=== PATIENT | male | born 1945 | race Caucasian/White ===

== ENCOUNTER 2018-05-11 09:22 | Outpatient (CLI) | payer MEDICARE, BC, SELFPAY ==
[2018-05-11 11:01] LABS: Anion Gap 9.5 mmol/L (3-11); BUN 14 mg/dL (7-18); CO2 29.5 mmol/L (21.0-32.0); CREATININE 0.85 mg/dL (0.70-1.30); Calcium 8.9 mg/dL (8.5-10.1); Chloride 100 mmol/L (98-107); Cholesterol 126 mg/dL (50-200); Glucose 93 mg/dL (70-100); HDL Cholesterol 60 mg/dL (40-60); LDL CHOLESTEROL 60 mg/dL (<100); Potassium 3.7 mmol/L (3.5-5.1); Sodium 139 mmol/L (136-145); Triglyceride 49 mg/dL (30-150)
[2018-05-11 11:16] LABS: Hemoglobin A1C 5.5 % (4.5-6.2)
== END 2018-05-11 09:42 ==
LOC: NCHCO 09:25 → LBO 16:49
PROVIDERS: PCP Nurse Practitioner Family; Visit Provider Nurse Practitioner Family
DX: E78.5 Hyperlipidemia, unspecified (principal); I10 Essential (primary) hypertension; R73.01 Impaired fasting glucose
CPT/HCPCS: 36415; 80048; 80061; 83721; 83036

== ENCOUNTER → 2019-07-10 09:42 | Outpatient (BNVA) | payer MEDICARE, BC, SELFPAY | PROVIDERS: PCP Nurse Practitioner Family; Referring Provider Nurse Practitioner Family; Visit Provider Orthopaedic Surgery | DX: M65.342 Trigger finger, left ring finger (principal) | CPT/HCPCS: 99201; 99203 ==

== ENCOUNTER 2019-07-15 10:21 | Day surgery (SDC) | payer MEDICARE, BC, SELFPAY ==
[2019-07-15 11:26] VITALS: BP 153/77; PULSE 78; RESP 16; TEMP 36.1; O2SAT 96
[2019-07-15] MEDS: Lidocaine 2% Multi-Dose 50 ML VIAL (12:20)
--- NOTE | 2019-07-15 12:21 | W.PM.DSUDISC ---
Discharge Plan Disposition Patient Disposition: HOME Condition: Good Discharge Details Reason For Visit: Trigger finger release Attending Provider: Nadeem Salamanca Primary Care Provider: Anika Robles Home Meds and New Rx's Prescriptions: Continued Shingrix (PF) 50 mcg/0.5 mL suspension for reconstitution 50 mcg IM .COMPLEX Qty: 1 RF: 1 Glucosamine-Chondroitin Complx 1 EACH capsule 2 cap PO DAILY RF: 0 aspirin 81 MG tablet,delayed release (DR/EC) 81 mg PO DAILY RF: 0 acetaminophen 500 MG tablet 500 mg PO q4-6prn RF: 0 kvng extract 250 MG capsule 250 mg PO DAILY RF: 0 acetaminophen 325 MG tablet 650 mg PO Q4H PRN RF: 0 scopolamine base 1 mg over 3 days patch 3 day 1 patch TD Q72H PRN (Reason: nausea and vomiting, motion sickness) Qty: 10 RF: 0 hydrochlorothiazide 25 mg tablet 25 mg PO DAILY Qty: 90 RF: 3 losartan 50 mg tablet 50 mg PO DAILY Qty: 90 RF: 3 simvastatin 40 mg tablet 40 mg PO DAILY Qty: 90 RF: 3 famotidine 20 MG tablet 20 tab PO DAILY RF: 0 Discharge Instructions Additional Instructions: Bend and straighten fingers L hand 10 times/hour when awake to prevent swelling. Keep dressings dry and in place for 48 hours. Remove dressings after 48 hours. May then shower or bathe and get incision wet. Leave incision uncovered when it is dry and sealed. Take tylenol or ibuprofen for pain. Follow up with in 2 weeks. Referrals: Nadeem Salamanca MD [ [facility] STAFF PHYSICIAN] - (f/u in 2 weeks.) Activity:: Activity as Tolerated Remove Dressings/Wound Care:: 48 hours Shower/Bathe:: 48 hours Diet:: As Tolerated Discharge Orders Discharge Orders: Discharge Order (Routine); Ordered 07/15/19 Ordered By: Nadeem Salamanca DS: Diagnosis Discharge Diagnosis (1) Trigger ring finger of left hand: Status: Acute
[2019-07-15 12:46] VITALS: BP 138/69; PULSE 67; RESP 14; O2SAT 92
--- NOTE | 2019-07-17 06:28 | ROE_ITS ---
REPORT OF OPERATIVE PROCEDURE DATE OF PROCEDURE July 15, 2019 PREOPERATIVE DIAGNOSIS Trigger left ring finger. POSTOPERATIVE DIAGNOSIS Trigger left ring finger. PROCEDURE Tendon sheath incision for trigger finger release left ring finger. ANESTHESIA Local infiltration 1% Xylocaine solution and 0.5% Marcaine solution. SURGEON Nadeem Salamanca M.D. INDICATIONS This is a 73-year-old white male with painful locking of his left ring finger. This has been going on for a month. He is still quite active and working. He cannot hold on to tools with his left hand bec ause of the locking of the left ring finger. Trigger finger release was recommended to alleviate his pain and restore normal function to the left ring finger. The risks and complications of the procedur e were explained to the patient in detail preoperatively. DESCRIPTION OF PROCEDURE The patient was taken the Operating Room on July 15, 2019. He was placed supine on the Operating Table. The left hand was prepped and draped free in the usual sterile fashion. I infiltrated over t he proximal gabi of the flexure sheath of the left ring finger with 1% Xylocaine solution. I then made a transverse incision about 5 mm distal to the distal palmar flexion crease centered over flexor sheath of the left ring finger. The incision was about 2 cm in length. The incision was carried ramiro n to the subcu. Blunt tip Littler scissors were then used to mobilize the soft tissues away from the flexor sheath. Retractors were inserted and flexor sheath was clearly visualized. I incised the flex or sheath in the midline, and then extended the incision proximally and distally the entire length of the proximal gabi. I then asked the patient to actively flex and extend his left ringer finger. He was now able to flex and extend his finger fully without locking or catching. The wound was irrigated with saline solution. The wound margins were infiltrated with 0.5% Marcaine solution. The skin edges were approximated with three interrupted #4-0 Nylon sutures. Sterile dressi ngs were applied of Xeroform gauze, sterile gauze, 4x4s, and wrapped with a 2-inch cling bandage. The patient tolerated the procedure well and was discharged to the Day Surgery Unit in good condition. The patient was discharged home from the Day Surgery Unit with instructions to keep the dressings dry and intact for 48 hours. After 48 hours, he may remove the dressings, shower, bathe and get his inci dorothy wet. He is encouraged to flex and extend the fingers of his left hand 10 times an hour while john ke to prevent stiffness and swelling. He will take Tylenol or ibuprofen as needed for pain. He may le ave the incision uncovered after 48 hours if it is dry and sealed. He should followup in Dr. Salamanca's office in two weeks for suture removal.
== END 2019-07-15 12:43 | disposition home or self-care (01) ==
PROVIDERS: PCP Nurse Practitioner Family; Visit Provider Orthopaedic Surgery
PROC: (CPT 26055; principal; 2019-07-15 11:15)
DX: M65.342 Trigger finger, left ring finger (principal)
CPT/HCPCS: 26055

== ENCOUNTER → 2019-07-30 10:01 | Outpatient (BNVA) | payer MEDICARE, BC, SELFPAY | PROVIDERS: PCP Nurse Practitioner Family; Referring Provider Nurse Practitioner Family; Visit Provider Orthopaedic Surgery | DX: Z47.89 Encounter for other orthopedic aftercare (principal); M65.342 Trigger finger, left ring finger ==

== ENCOUNTER 2019-10-31 10:36 | Outpatient (REF) | payer MEDICARE, BC, SELFPAY ==
[2019-10-31 19:14] LABS: Anion Gap 6.7 mmol/L (3-11); BUN 21 mg/dL (7-18); CO2 28.3 mmol/L (21.0-32.0); CREATININE 0.68 mg/dL (0.70-1.30); Calcium 8.9 mg/dL (8.5-10.1); Calculated LDL 69 mg/dL (<100); Chloride 105 mmol/L (98-107); Cholesterol 132 mg/dL (<200); Glucose 102 mg/dL (74-106); HDL Cholesterol 56 mg/dL (40-60); Potassium 3.8 mmol/L (3.5-5.1); Sodium 140 mmol/L (136-145); Triglyceride 39 mg/dL (<150)
== END 2019-10-31 10:56 ==
LOC: LBN 10:36
PROVIDERS: PCP Nurse Practitioner Family; Visit Provider Nurse Practitioner Family
DX: I10 Essential (primary) hypertension (principal); E78.5 Hyperlipidemia, unspecified
CPT/HCPCS: 80048; 80061

== ENCOUNTER 2021-01-31 12:45 | Emergency (ER) | payer MEDICARE, BC, SELFPAY ==
[2021-01-31 12:56] VITALS: BP 147/63; PULSE 64; TEMP 36.6; O2SAT 96
--- NOTE | 2021-01-31 13:10 | ED.GENADUL_ITS ---
Discharge Plan Disposition Patient Disposition: HOME Condition: Improving Discharge Details Clinical Impression: Cellulitis of arm, right Primary Care Provider: Anika Robles ED Provider: Nadeem Naik Home Meds and New Rx's Prescriptions: New sulfamethoxazole-trimethoprim [Bactrim DS] 800-160 mg tablet 1 tab PO BID 7 Days Qty: 14 RF: 0 Continued atorvastatin 40 mg tablet 40 mg PO DAILY RF: 0 hydrochlorothiazide 25 mg tablet 25 mg PO DAILY Qty: 90 RF: 3 Glucosamine-Chondroitin Complx 1 EACH capsule 2 cap PO DAILY RF: 0 aspirin 81 MG tablet,delayed release (DR/EC) 81 mg PO DAILY RF: 0 acetaminophen 500 MG tablet 500 mg PO q4-6prn RF: 0 kvng extract 250 MG capsule 250 mg PO DAILY RF: 0 acetaminophen 325 MG tablet 650 mg PO Q4H PRN RF: 0 losartan 100 mg tablet 100 mg PO DAILY RF: 0 famotidine 20 MG tablet 20 tab PO DAILY RF: 0 hydrochlorothiazide 25 mg tablet 50 mg PO DAILY RF: 0 Discharge Instructions Instructions: Cellulitis (ED) Additional Instructions: Continue to apply warm, moist heat to area to speed healing. Our care managers will arrange a follow-up for you in clinic this week for recheck. Continue your lower dose of losartan. Take antibiotics as prescribed. Medical Decision Making Pleasant and delightful 75-year-old male who believes he was stung by a hy menoptera on the right posterior upper humerus on January 14. He developed surrounding cellulitis. He was seen initially at urgent care and trialed on Keflex with no improvement and then subsequent had significant improvement following 1 week of Bactrim which she finished 3 days ago. Now with recurrent cellulitis at the same area. No systemic signs or symptoms of infection. He is otherwise well-appearing. He does have hypertension for which he takes losartan and hydrochlorothiazide. His losartan dose was decreased to 100 while taking Bactrim last week. Given the patient's significant improvement with Bactrim, I do feel 1 more week will be efficacious for him. We will ask for care management to arrange a follow-up with him and he will continue the lower dose of losartan for renal pr otection. Stable and appropriate for outpatient management. HPI General Mode of arrival: ambulatory . Date/Time Provider Initiated Documentation: 01/31/21 12:46 . Limitations to Documentation: no limitations . Information obtained by: patient . History of Present Illness 75 year old M presents to the emergency department with the chief complaint of Right arm cellulitis, recurrent, described as mild and similar to prior episodes, Quality is described as dull and constant, and is localized to the right and upper extremity. Patient reports no radiation. Patient started experiencing this day(s) and it has been constant. No relieving factors improve symptom(s), No exacerbating factors reported . Patient notes denies fever/chills, headaches and weakness. Patient did receive the following treatments prior to arrival, other (Finished Bactrim on Monday, 3 days prior) Related Data Home Medications Medication Instructions Recorded Confirmed Glucosamine-Chondroitin Complx 2 cap PO DAILY 08/13/12 01/31/21 acetaminophen 500 mg PO q4-6prn 08/13/12 01/31/21 aspirin 81 mg PO DAILY tab-cap 08/13/12 01/31/21 kvng extract 250 mg PO DAILY 04/26/13 01/31/21 famotidine 20 tab PO DAILY 10/18/14 01/31/21 acetaminophen 650 mg PO Q4H PRN tab-cap 11/20/15 01/31/21 losartan 100 mg tablet 100 mg PO DAILY 06/02/20 01/31/21 hydrochlorothiazide 25 mg tablet 25 mg PO DAILY #90 tab-cap 10/19/20 01/31/21 atorvastatin 40 mg tablet 40 mg PO DAILY 11/18/20 01/31/21 hydrochlorothiazide 50 mg PO DAILY 01/31/21 01/31/21 sulfamethoxazole-trimethoprim 1 tab PO BID 7 Days #14 tab 01/31/21 [Bactrim DS] Previous Rx's Medication Instructions Recorded hydrochlorothiazide 25 mg tablet 25 mg PO DAILY #90 tab-cap 10/19/20 sulfamethoxazole-trimethoprim 1 tab PO BID 7 Days #14 tab 01/31/21 [Bactrim DS] Allergies Allergy/AdvReac Type Severity Reaction Status Date / Time No Known Allergies Allergy Verified 01/31/21 13:03 General Stated Complaint: Cellulitis GREG: 4 Review of Systems Narrative: No fever, chills, weakness. 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 Essential hypertension (10/23/12) GERD (gastroesophageal reflux disease) Hydrocele of testis (01/30/13) left Hyperlipidemia (02/10/12) Baseline LDL 110; high intensity statin therapy (increased from moderate by Cardiology 05/2020) IFG (impaired fasting glucose) Neck pain (12/28/12) Osteoarth NOS-l/leg (08/10/12) Rotator cuff arthropathy of right shoulder Trigger ring finger of left hand Ventricular septal defect (02/10/12) [facility] Cardiology Surgical History Repair of inguinal hernia (05/06/15) Right; Dr Ma Replacement of total knee joint (05/05/12) R 2011 L 2007 Status post carotid endarterectomy Left; Tanvir Gunnar Reynoso [facility] Status post total bilateral knee replacement (08/10/12) Family History Mother No problems noted. Father No problems noted. Brother No problems noted. Brother No problems noted. Brother Essential hypertension Brother No problems noted. Sister No problems noted. Sister No problems noted. Sister No problems noted. Social History Smoking/Tobacco Use Status: Former Tobacco Use Smoking risk assessment performed?: Yes Alcohol Intake: former Drug use: Never Substance use type: does not use Caregiver/Support person: No Household members: spouse Number of Children: 4 Pets and animals: No Current gender identity: male What type of physical activity do you participate in: regular exercise and ot her Details: Stays active Frequency: daily Seatbelt use: always Drive intox or ride w/intox mobile lounge driver: No Water heater temp set <120 deg: Yes Working smoke detector in home: Yes Fire extinguisher in home: Yes Carbon monox detector in home: Yes Firearms in home: No Do you feel safe at home: Yes Do you feel safe in your relationship?: Yes Exam Narrative Exam Narrative: GEN: awake, alert, oriented 3. Pleasant, well groomed, interactive. HEAD: Normocephalic, atraumatic CHEST/RESP: Nontender, clear to auscultation bilateral, no wheeze/rhonchi/rales CARDIOVASCULAR: RRR, holosystolic murmur 3 out of 6. 2+ Rad pulse bilateral EXT: Full ROM, right humerus posterior proximal erythema measuring approximately 10 x 3 cm with some skin induration. No fluctuance or pointing abscess. Neuro: Grossly normal neurologic exam, conversant, interactive. Psych: Speech fluent, thoughts congruent, affect normal Course Vital Signs Vital signs: Vital Signs Temperature 36.6 C 01/31/21 12:56 Pulse 64 01/31/21 12:56 Blood Pressure 147/63 H 01/31/21 12:56 Pulse Oximetry 96 01/31/21 12:56 Temperature 36.6 C 01/31/21 12:56 Temperature Source Oral 01/31/21 12:56 Pulse 64 01/31/21 12:56 Respiratory Effort Non-Labored 01/31/21 13:01 Blood Pressure 147/63 H 01/31/21 12:56 Blood Pressure Position Sitting 01/31/21 12:56 Pulse Oximetry 96 01/31/21 12:56 Oxygen Delivery Method Room Air 01/31/21 12:56 Oxygen Flow Rate 0 01/31/21 12:56 Pain Level 0 01/31/21 12:56
--- NOTE | 2021-01-31 13:12 | NUR.NOTE ---
referral to [facility] for follow up this week with michael frost
[2021-01-31] MEDS: Sulfameth/Trimeth DS TAB 1 TAB PO (13:20)
== END 2021-01-31 13:19 | disposition home or self-care (01) ==
PROVIDERS: Emergency Provider Emergency Medicine; PCP Nurse Practitioner Family
DX: L03.113 Cellulitis of right upper limb (principal)
CPT/HCPCS: 99283

== ENCOUNTER 2021-02-05 11:41 | Inpatient (IN) | payer MEDICARE, BC, SELFPAY ==
[2021-02-05 11:50] VITALS: BP 149/61; PULSE 69; RESP 18; TEMP 36.5; O2SAT 94
--- NOTE | 2021-02-05 12:15 | DI.US_ITS ---
Exam(s) US SOFT TISSUE EXTREMITY EXAM: US SOFT TISSUE EXTREMITY CLINICAL HISTORY: right arm pain, redness TECHNIQUE: Ultrasound performed using standard protocol. COMPARISON: US CAROTID ULTRASOUND from 10/29/2013 FINDINGS: Soft tissue ultrasound of the right axilla was performed. Note is made of mild soft tissue edema in the posterior upper arm. There is no evidence of abscess or mass. There is mildly enlarged lymph no de measuring about 21 x 15 x 11 millimeters with a clearly defined hilum. IMPRESSION: Mildly enlarged lymph node of the axilla. No other specific findings. DATA REPOSITORY:
[2021-02-05 12:31] LABS: Abs Immature Grans 0.03 10^3/uL (0.0-0.06); Absolute Basophil Count 0.03 10^3/uL (0.0-0.2); Absolute Lymphocyte Count 1.62 10^3/uL (1.2-3.4); Absolute Monocyte Count 0.44 10^3/uL (0.1-0.8); Absolute Neutrophil Count 3.78 10^3/uL (1.2-6.7); Basophils % 0.5; Eosinophils % 3.3; HCT 43.1 % (40.0-50.0); HGB 14.8 g/dL (13.5-17.5); Immature Grans % 0.5; Lymphocytes % 26.6; MCH 31.9 pg (27.0-33.0); MCHC 34.3 % (32.0-36.0); MCV 92.9 fL (80-95); MPV 8.6 fL (8.0-11.0); Monocytes % 7.2; Neutrophils % 61.9; Nucleated RBC 0 %; Platelet Count 218 10^3/uL (130-400); RBC 4.64 10^6/uL (4.36-5.78); RDW-SD 41.1 fL
[2021-02-05 13:01] LABS: ALT 37 U/L (16-63); AST 26 U/L (15-37); Alkaline Phosphatase 78 U/L (46-116); Anion Gap 10.4 mmol/L (3-11); BUN 22 mg/dL (7-18); Bilirubin, Total 0.6 mg/dL (0.2-1.0); C-Reactive Protein 0.12 mg/dL (0.0-0.3); CO2 26.6 mmol/L (21.0-32.0); CREATININE 1.2 mg/dL (0.70-1.30); Calcium 8.9 mg/dL (8.5-10.1); Chloride 102 mmol/L (98-107); Estimated GFR 58.71 (mL/min/1.73m2); Glucose 129 mg/dL (74-106); Potassium 4.2 mmol/L (3.5-5.1); Sodium 139 mmol/L (136-145); Total Protein 7.3 g/dL (6.4-8.2)
--- NOTE | 2021-02-05 13:12 | DI.RAD_ITS ---
Exam(s) XR SHOULDER RT COMPLETE 2+V EXAM: XR SHOULDER RT COMPLETE 2+V CLINICAL HISTORY: pain TECHNIQUE: COMPARISON: No exams were available for comparison FINDINGS: Five views were obtained. There is moderate narrowing of the cartilaginous joint space of the glenoh umeral joint. Multiple soft tissue calcifications are seen associated with rotator cuff adjacent to the humeral head presumably representing supraspinatus and infraspinatus associated calcifications. There is been an apparent resection of the distal clavicle. There are very prominent marginal osteop hytes of the glenoid and humeral head. There is no evidence of acute fracture or dislocation. IMPRESSION: Severe degenerative changes as described above. No evidence of acute fracture or dislocation. RADIATION DOSE DELIVERED: Total DLP
--- NOTE | 2021-02-05 13:13 | ED.GENADUL_ITS ---
Discharge Plan Discharge Details Chief Complaint: Cellulitis Admit Date/Time: 02/05/21 14:03 Admit Provider: Brenna Jacobsen Attending Provider: Brenna Jacobsen Primary Care Provider: Anika Robles ED Provider: Twila Kingsley Discharge Data Discharge Date/Time-TO BE ENTERED AT DEPARTURE: 02/05/21 15:23 Medical Decision Making Lactate of 2, no leukocytosis, OLY, creatinine 1.6 Patient initially quite hypotensive, 70/30, very fluid responsive, sepsis bolus of fluid administered Alert and oriented, first expected cellulitis although I suspect that the hypotension was partly prerenal and dehydration, as a creatinine was ordered after 1.5 L of normal saline No evidence of pulmonary edema/CHF with fluid bolus IV vancomycin and Zosyn initiated prior to chemistries returning Procalcitonin actually negative which is interesting Patient will need admission to the hospital for observation given hypotension and cellulitis with lymphangitis, concern for septic shock although I suspect the hypotension was multifactorial Patient is agreeable to admission, ED Covid negative Questionable left lower lobe infiltrate although oxygenation 100% on room air, lower suspicion for this although has been treated empirically Discussed with admitting hospitalist, Dr. Graham who will admit patient at this time VBG within normal limits Chest x-ray interpretation reviewed and films were available Medical Records Medical records reviewed: Yes I reviewed the patient's medical records. Lab Data Lab results reviewed: Yes I reviewed the patient's lab results. ECG Data Prior ECG tracings: available for review HPI General Mode of arrival: ambulatory . Date/Time Provider Initiated Documentation: 02/05/21 11:48 . Limitations to Documentation: no limitations . Information obtained by: patient . HPI Narrative: This 75-year-old gentleman presents with cellulitis to her right arm. He believes he was found by a hornet on 14 January and awoke the next morning with erythema on the pustule to the affected arm on the right. He states that he has-Keflex initially and subseq uently changed to Bactrim with good relief after week. He was evaluated on the of the symptoms were recurring after completion of the antibiotic and he was placed on an additional week course. He states that with this episode he has had no improvement in fact is worsening. He denies any fever or chills. He denies any chest pain or shortness of breath. Is been taking his antibiotic as prescribed. He denies any additional complaints time. Related Data Home Medications Medication Instructions Recorded Confirmed Glucosamine-Chondroitin Complx 2 cap PO DAILY 08/13/12 02/05/21 acetaminophen 500 mg PO q4-6prn 08/13/12 02/05/21 aspirin 81 mg PO DAILY tab-cap 08/13/12 02/05/21 kvng extract 250 mg PO DAILY 04/26/13 02/05/21 famotidine 20 tab PO DAILY 10/18/14 02/05/21 acetaminophen 650 mg PO Q4H PRN tab-cap 11/20/15 01/31/21 losartan 100 mg tablet 100 mg PO DAILY 06/02/20 02/05/21 hydrochlorothiazide 25 mg tablet 25 mg PO DAILY #90 tab-cap 10/19/20 01/31/21 atorvastatin 40 mg tablet 40 mg PO DAILY 11/18/20 02/05/21 hydrochlorothiazide 50 mg PO DAILY 01/31/21 02/05/21 sulfamethoxazole-trimethoprim 1 tab PO BID 7 Days #14 tab 01/31/21 02/05/21 [Bactrim DS] Previous Rx's Medication Instructions Recorded hydrochlorothiazide 25 mg tablet 25 mg PO DAILY #90 tab-cap 10/19/20 sulfamethoxazole-trimethoprim 1 tab PO BID 7 Days #14 tab 01/31/21 [Bactrim DS] Allergies Allergy/AdvReac Type Severity Reaction Status Date / Time No Known Allergies Allergy Verified 02/05/21 09:51 General Stated Complaint: Cellulitis GREG: 3 Review of Systems All systems reviewed & are unremarkable except as noted in HPI and below PFSH Medical History Ascending aortic aneurysm [facility] Cardiology BPH without urinary obstruction Carotid artery stenosis (08/10/12) S/p L CEA 11/18/15 [facility] 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 Essential hypertension (10/23/12) GERD (gastroesophageal reflux disease) Hydrocele of testis (01/30/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 Hyperlipidemia (02/10/12) Baseline LDL 110; high intensity statin therapy (increased from moderate by Cardiology 05/2020) IFG (impaired fasting glucose) Neck pain (12/28/12) Osteoarth NOS-l/leg (08/10/12) Rotator cuff arthropathy of right shoulder Trigger ring finger of left hand Ventricular septal defect (02/10/12) [facility] Cardiology Surgical History Repair of inguinal hernia (05/06/15) Right; Dr Ma Replacement of total knee joint (05/05/12) R 2012 L 2007 Status post carotid endarterectomy Left; Tanvir Gunnar Reynoso [facility] Status post total bilateral knee replacement (08/10/12) Family History Mother No problems noted. Father No problems noted. Brother No problems noted. Brother No problems noted. Brother Essential hypertension Brother No problems noted. Sister No problems noted. Sister No problems noted. Sister No problems noted. Social History Smoking/Tobacco Use Status: Former Tobacco Use Smoking risk assessment performed?: Yes Alcohol Intake: former Drug use: Never Substance use type: does not use Caregiver/Support person: No Household members: spouse Number of Children: 4 Pets and animals: No Current gender identity: male What type of physical activity do you participate in: regular exercise and other Details: Stays active Frequency: daily Seatbelt use: always Drive intox or ride w/intox canal driver: No Water heater temp set <120 deg: Yes Working smoke detector in home: Yes Fire extinguisher in home: Yes Carbon monox detector in home: Yes Firearms in home: No Do you feel safe at home: Yes Do you feel safe in your relationship?: Yes Exam Const General: ill appearing HENMT Other: Dry mucous membranes Eyes Sclera: sclerae normal Neck Other: No meningismus Resp Effort & Inspection: normal respiratory effort Auscultation: clear to auscultation bilaterally Cardio Rate: regular rate Other: No murmur GI Other: Nontender abdominal exam Other: No testicular tenderness, no penile tenderness, no rashes or lesions Skin Other: Right lower extremity cellulitis, healing burn noted on posterior right ankle, neurovascularly intact, cellulitis circumferentially to right calf and lower leg, no crepitus, no pain out of proportion to exam, lymphangitis extending to groin Neuro General: patient alert and patient oriented x3 Extrem Other: See note under skin Course Vital Signs Vital signs: Vital Signs Temperature 36.5 C 02/05/21 11:50 Pulse 69 02/05/21 11:50 Respiratory Rate 18 02/05/21 11:50 Blood Pressure 149/61 H 02/05/21 11:50 Pulse Oximetry 94 02/05/21 11:50 Temperature 36.5 C 02/05/21 11:50 Temperature Source Skin 02/05/21 11:50 Pulse 69 02/05/21 11:50 Respiratory Rate 18 02/05/21 11:50 Respiratory Effort 02/05/21 11:53 Blood Pressure 149/61 H 02/05/21 11:50 Blood Pressure Position Sitting 02/05/21 11:50 Pulse Oximetry 94 02/05/21 11:50 Oxygen Delivery Method Room Air 02/05/21 11:50 Oxygen Flow Rate 0 02/05/21 11:50 Pain Level 0 02/05/21 11:50 Lab/Test Results Lab/Test Results: 02/05/21 12:45 Blood Blood Culture - Pending 02/05/21 12:20 Blood Blood Culture - Pending Laboratory Tests Range/Units 02/05/21 02/05/21 12:20 12:20 WBC (4.4-10.8) 10^3/uL 6.10 RBC (4.36-5.78) 10^6/uL 4.64 Hgb (13.5-17.5) g/dL 14.8 Hct (40.0-50.0) % 43.1 MCV (80-95) fL 92.9 MCH (27.0-33.0) pg 31.9 MCHC (32.0-36.0) % 34.3 RDW (11.8-14.1) % 12.0 Plt Count (130-400) 10^3/uL 218 MPV (8.0-11.0) fL 8.6 Immature Gran % 0.5 Neutrophils % 61.9 Lymphocytes % 26.6 Monocytes % 7.2 Eosinophils % 3.3 Basophils % 0.5 Nucleated RBC % % 0 Absolute Neutrophils (1.2-6.7) 10^3/uL 3.78 Absolute Lymphocytes (1.2-3.4) 10^3/uL 1.62 Absolute Monocytes (0.1-0.8) 10^3/uL 0.44 Absolute Eosinophils (0.0-0.7) 10^3/uL 0.20 Absolute Basophils (0.0-0.2) 10^3/uL 0.03 Sodium (136-145) mmol/L 139 Potassium (3.5-5.1) mmol/L 4.2 Chloride (98-107) mmol/L 102 Carbon Dioxide (21.0-32.0) mmol/L 26.6 Anion Gap (3-11) mmol/L 10.4 BUN (7-18) mg/dL 22 H Creatinine (0.70-1.30) mg/dL 1.2 Estimated GFR/1.73 m2 (mL/min/1.73m2) 58.71 Glucose (74-106) mg/dL 129 H Calcium (8.5-10.1) mg/dL 8.9 Total Bilirubin (0.2-1.0) mg/dL 0.6 AST (15-37) U/L 26 ALT (16-63) U/L 37 Alkaline Phosphatase (46-116) U/L 78 C-Reactive Protein (0.0-0.3) mg/dL 0.12 Total Protein (6.4-8.2) g/dL 7.3 Albumin (3.4-5.0) g/dL 4.0 Critical Care Time Critical Care Time Critical Care Time: Yes Total Critical Care Time: 45 Attestation: IV antibiotics, severe sepsis, septic shock fluid bolus, telemetry monitoring, IV antibiotics, admission to the hospital, diagnostic lab and diagn ostic imaging assessment and
[2021-02-05 13:21] VITALS: BP 135/63; PULSE 69; RESP 14; TEMP 36.3; O2SAT 94
[2021-02-05 14:46] LABS: Source Nasal/Nares
[2021-02-05] MEDS: VANCOMYCIN/WATER (PEG) 2 GM/400 ML BAG IVPB (14:47)
[2021-02-05 15:40] LABS: COVID-19 PCR Negative (Negative)
[2021-02-05 15:44] VITALS: BP 129/66; PULSE 59; RESP 14; TEMP 36.5; O2SAT 95
[2021-02-05] MEDS: Enoxaparin 40 MG/0.4 ML SYR SC (16:48)
--- NOTE | 2021-02-05 16:48 | W.PM.HP.N ---
Date of service: 02/05/21 Time of Service: 16:48 Assessment and Plan Assessment and plan (1) Cellulitis of arm, right: Status: Acute Assessment and plan: Appears to be very much responding to IV vancomycin. Will continue this. Await blood culture results (2) Insect bite: Status: Acute Assessment and plan: It is unclear which insect this was and, given prevalence of tick-borne illness in the region, I do think tick studies are worth checking (3) Essential hypertension: Status: Chronic Assessment and plan: Continue home therapy (4) Hyperlipidemia: Status: Chronic Assessment and plan: continue home therapy Qualifiers: Hyperlipidemia type: unspecified Qualified Code(s): E78.5 - Hyperlipidemia, unspecified (5) DVT prophylaxis: Status: Acute Assessment and plan: sc lovenox (6) Discharge planning issues: Status: Acute Assessment and plan: Full code History of Present Illness History of Present Illness Chief Complaint: I must have been stung by a wasp or a hornet Narrative: Mr Bustillos is a 75 year old male with PMHx of hypertension, hyperlipidemia, ascending aortic aneurysm followed by [facility] and carotid stenosis s/p L CEA at [facility], who returned to [facility] ED today because his RUE redness has not resolved with outpatient antibiotics. The patient statesthat about a month ago he was stung by a wasp or a hornet, but he is not sure because he did not see the insect, just felt the sting/bite. The insect bit him in his right arm. Since then he has had redness in the area, for which he sought care in [facility] care on 01/14/21 and was prescribed keflex. This did not improve after 4 days, so he was switched to bactrim. This, the patient felt, was helping, but when he finished his 14 day course, some redness remained, so the bactrim course was extended for another week on 01/31. The redness remains, though got better. The patient denies fevers, malaise/fatigue. He does report a slight headache. The erythematous area sometimes itches. He does have a slightly sore shoulder, which does not bother him much. In the ED, he was initiated on empiric vancomycin, and hospitalist admission was requested. 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 Hyperlipidemia (02/10/12) Baseline LDL 110; high intensity statin therapy (increased from moderate by Cardiology 05/2020) IFG (impaired fasting glucose) Neck pain (12/28/12) Osteoarth NOS-l/leg (08/10/12) Rotator cuff arthropathy of right shoulder Trigger ring finger of left hand Ventricular septal defect (02/10/12) [facility] Cardiology Surgical History Repair of inguinal hernia (05/06/15) Right; Dr Ma Replacement of total knee joint (05/05/12) R 2012 L 2007 Status post carotid endarterectomy Left; Tanvir Reynoso [facility] Status post total bilateral knee replacement (08/10/12) Family History Mother No problems noted. Father No problems noted. Brother No problems noted. Brother No problems noted. Brother Essential hypertension Brother No problems noted. Sister No problems noted. Sister No problems noted. Sister No problems noted. Social History Smoking/Tobacco Use Status: Former Tobacco Use Smoking risk assessment performed?: Yes Alcohol Intake: former Drug use: Never Substance use type: does not use Caregiver/Support person: No Household members: spouse Number of Children: 4 Pets and animals: No Current gender identity: male What type of physical activity do you participate in: regular exercise and other Details: Stays active Frequency: daily Seatbelt use: always Drive intox or ride w/intox minibus driver: No Water heater temp set <120 deg: Yes Working smoke detector in home: Yes Fire extinguisher in home: Yes Carbon monox detector in home: Yes Firearms in home: No Do you feel safe at home: Yes Do you feel safe in your relationship?: Yes Meds Allergies and Home Medications Allergies Allergy/AdvReac Type Severity Reaction Status Date / Time No Known Allergies Allergy Verified 02/05/21 09:51 Home Medications Medication Instructions Recorded Confirmed Type Glucosamine-Chondroitin Complx 2 cap PO DAILY 08/13/12 02/05/21 History acetaminophen 500 mg PO q4-6prn 08/13/12 02/05/21 History aspirin 81 mg PO DAILY tab-cap 08/13/12 02/05/21 History kvng extract 250 mg PO DAILY 04/26/13 02/05/21 History famotidine 20 tab PO DAILY 10/18/14 02/05/21 History acetaminophen 650 mg PO Q4H PRN tab-cap 11/20/15 01/31/21 History losartan 100 mg tablet 100 mg PO DAILY 06/02/20 02/05/21 History hydrochlorothiazide 25 mg tablet 25 mg PO DAILY #90 tab-cap 10/19/20 01/31/21 Rx atorvastatin 40 mg tablet 40 mg PO DAILY 11/18/20 02/05/21 History hydrochlorothiazide 50 mg PO DAILY 01/31/21 02/05/21 History sulfamethoxazole-trimethoprim 1 tab PO BID 7 Days #14 tab 01/31/21 02/05/21 Rx [Bactrim DS] Exam Narrative Exam Narrative: General: Pleasant elderly male, non-toxic appearing, in great spirits, A&Ox3 Neurological: A&Ox3, no focal deficits Psychiatric: Appropriate speech pattern/content Skin: Erythema on the inferior portion of right arm without induration which has already significantly receded from the black marker line since initiation of antibiotics HEENT: Atraumatic, normocephalic, EOMI, MMM, clear oropharynx, no submandibular or cervical lymphadenopathy, no goiter or JVD Cardiovascular: RRR, no m/r/g Lungs: CTAB Gastrointestinal: soft, nontender, nondistended Genitourinary: deferred Extremities: trace edema about 1[address] bilateral knees (chronic), 1+ pedal pulses B Results Imaging Additional studies: XR R shoulder: Severe degenerative changes as described above. No evidence of acute fracture or dislocation. US RUE: Mildly enlarged lymph node of the axilla. No other specific findings. Labs Result diagrams: 02/05/21 12:20 02/05/21 12:20 Labs: Laboratory Results - last 24 hr 02/05/21 02/05/21 02/05/21 12:20 12:20 14:44 WBC 6.10 RBC 4.64 Hgb 14.8 Hct 43.1 MCV 92.9 MCH 31.9 MCHC 34.3 RDW 12.0 Plt Count 218 MPV 8.6 Immature Gran % 0.5 Neutrophils % 61.9 Lymphocytes % 26.6 Monocytes % 7.2 Eosinophils % 3.3 Basophils % 0.5 Nucleated RBC % 0 Absolute Neutrophils 3.78 Absolute Lymphocytes 1.62 Absolute Monocytes 0.44 Absolute Eosinophils 0.20 Absolute Basophils 0.03 Sodium 139 Potassium 4.2 Chloride 102 Carbon Dioxide 26.6 Anion Gap 10.4 BUN 22 H Creatinine 1.2 Estimated GFR/1.73 m2 58.71 Glucose 129 H Calcium 8.9 Total Bilirubin 0.6 AST 26 ALT 37 Alkaline Phosphatase 78 C-Reactive Protein 0.12 Total Protein 7.3 Albumin 4.0 COVID-19 Source Nasal/Nares SARS-CoV-2 (PCR) Negative Last Vital Signs Temp 36.5 C 02/05/21 15:44 Pulse 59 L 02/05/21 15:44 Resp 14 02/05/21 15:44 BP 129/66 02/05/21 15:44 Pulse Ox 95 02/05/21 15:44
[2021-02-05 20:17] VITALS: BP 148/73; PULSE 84; RESP 18; TEMP 36.6; O2SAT 96
[2021-02-05] MEDS: Atorvastatin 40 MG TAB PO (20:17)
[2021-02-06 00:02] VITALS: BP 123/58; PULSE 65; RESP 18; TEMP 36.5; O2SAT 98
[2021-02-06 04:01] VITALS: BP 153/74; PULSE 72; RESP 18; TEMP 36.5; O2SAT 95
[2021-02-06] MEDS: VANCOMYCIN/WATER (PEG) 1 GM/200 ML BAG IV ×2 (06:38→19:57)
[2021-02-06 06:59] LABS: Abs Immature Grans 0.03 10^3/uL (0.0-0.06); Absolute Basophil Count 0.03 10^3/uL (0.0-0.2); Absolute Eosinophil Count 0.36 10^3/uL (0.0-0.7); Absolute Monocyte Count 0.51 10^3/uL (0.1-0.8); Absolute Neutrophil Count 3.42 10^3/uL (1.2-6.7); Basophils % 0.5; Eosinophils % 6.3; HCT 40.7 % (40.0-50.0); HGB 13.8 g/dL (13.5-17.5); Immature Grans % 0.5; Lymphocytes % 24.3; MCH 31.6 pg (27.0-33.0); MCHC 33.9 % (32.0-36.0); MCV 93.1 fL (80-95); MPV 8.9 fL (8.0-11.0); Monocytes % 8.9; Neutrophils % 59.5; Nucleated RBC 0 %; Platelet Count 206 10^3/uL (130-400); RBC 4.37 10^6/uL (4.36-5.78); WBC 5.75 10^3/uL (4.4-10.8)
[2021-02-06 07:14] LABS: Anion Gap 5.7 mmol/L (3-11); BUN 17 mg/dL (7-18); CO2 30.3 mmol/L (21.0-32.0); CREATININE 0.9 mg/dL (0.70-1.30); Calcium 8.9 mg/dL (8.5-10.1); Chloride 104 mmol/L (98-107); Glucose 104 mg/dL (74-106); Potassium 4.2 mmol/L (3.5-5.1); Sodium 140 mmol/L (136-145)
[2021-02-06 07:16] LABS: Magnesium 1.8 mg/dL (1.8-2.4)
[2021-02-06 07:25] VITALS: BP 131/70; PULSE 61; RESP 18; TEMP 36.5; O2SAT 95
[2021-02-06] MEDS: Losartan 50 MG TAB 100 MG PO (08:21)
[2021-02-06] MEDS: Aspirin E.C. 81 MG TABEC PO (08:21)
[2021-02-06] MEDS: hydroCHLOROthiazide 25 MG TAB 50 MG PO (08:25)
[2021-02-06] MEDS: Normal Saline Flush 10 ML SYR IVP (08:26)
[2021-02-06] MEDS: Famotidine 20 MG TAB PO (08:26)
--- NOTE | 2021-02-06 09:02 | INITIAL_ITS ---
- If Service Date Differs Date of service: 02/06/21 Time of Service: 09:02 Care Management Initial Assess REASON FOR HOSPITALIZATION:: cellulitis of right arm PAST MEDICAL HISTORY/PAST SURGICAL HISTORY:: Medical History . Ascending aortic aneurysm. [facility] Cardiology. BPH without urinary obstruction. Carotid artery stenosis (08/10/12). S/p L CEA 11/18/15 [facility]. 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 with dyspnea. Essential hypertension (10/23/12). GERD (gastroesophageal reflux disease). 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 Hyperlipidemia (02/10/12). Baseline LDL 110; high intensity statin therapy (increased from moderate by Cardiology 05/2020). IFG (impaired fasting glucose). Neck pain (12/28/12). Osteoarth NOS-l/leg (08/10/12). Rotator cuff arthropathy of right shoulder. Trigger ring finger of left hand. Ventricular septal defect (02/10/12). [facility] Cardiology. Surgical History . Repair of inguinal hernia (05/06/15). Right; Dr Ma. Replacement of total knee joint (05/05/12). R 2011. L 2007. Status post carotid endarterectomy. Left; Tanvir Gunnar Reynoso [facility]. Status post total bilateral knee replacement (08/10/12) PREVIOUS FUNCTIONAL STATUS/SOCIAL/FAMILY SUPPORTS:: Oksana lives in [place] in a single family home with his Vika. 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 Uriel and Vika have 4 daughters. They are very close to the 2 that live locally. They also have 14 grandchildren and 4 great grandchildren with a 5th on the way. Uriel stated that he is very active and has enjoyed good health and a supportive, loving family. CURRENT FUNCTIONAL STATUS:: Uriel was sitting up in a chair when met with him. He was very pleasant and agreeable to conversation. He shared details about his family and his career, both of which are obviously important to him. At his request Uriel was given 2 copies of the [place] forms. CM offered to assist with their completion if desired. ADVANCE DIRECTIVES:: none on file Has patient been provided with info about the portal/API?: Yes Did the patient sign up for the portal?: No CODE STATUS:: Full Code INSURANCE COVERAGE / FINANCIAL ISSUES:: Medicare. BC BS CURRENT HOME/COMMUNITY SERVICES/EQUIPMENT:: none PRIMARY CARE PHYSICIAN:: Anika Robles POTENTIAL DISCHARGE NEEDS:: Follow up with PCP and discharge plan of care PATIENT/FAMILY EDUCATION NEEDS:: Review of discharge instructions, medications, limitations, activity, folllow up plan, Ask Me Three TRANSPORTATION:: via private vehicle with family PLAN:: Uriel will likely be discharged home with no new services. He will follow up with his community providers and plan of care and transport with family. CM will follow and assess for discharge planning concerns.
[2021-02-06 11:20] VITALS: BP 135/65; PULSE 63; RESP 18; TEMP 36.5; O2SAT 94
[2021-02-06 15:52] VITALS: BP 118/64; PULSE 66; RESP 17; TEMP 36.8; O2SAT 94
[2021-02-06] MEDS: Enoxaparin 40 MG/0.4 ML SYR SC (15:56)
--- NOTE | 2021-02-06 16:28 | PGE_ITS ---
Date of Service Date of service: 02/06/21 Time of Service: 16:28 Assessment and Plan Assessment and plan (1) Cellulitis of arm, right: Status: Acute Assessment and plan: Appears to be very much responding to IV vancomycin. Will continue this. Await blood culture results. Add doxycycline to cover for Rickettsial infection while awaiting results ot tick panel. Also would be good choice for anti- staphylococcal agent to replace Vancomycin upon discharge. (2) Insect bite: Status: Acute Assessment and plan: It is unclear which insect this was and, given prevalence of tick-borne illness in the region, I do think tick studies are worth checking Qualifiers: Encounter type: sequela Site of insect bite: upper arm Laterality: right Qualified Code(s): S40.861S - Insect bite (nonvenomous) of right upper arm, sequela; W57.XXXS - Bitten or stung by nonvenomous insect and other nonvenomous arthropods, sequela (3) Essential hypertension: Status: Chronic Assessment and plan: Continue home therapy (4) Hyperlipidemia: Status: Chronic Assessment and plan: continue home therapy Qualifiers: Hyperlipidemia type: unspecified Qualified Code(s): E78.5 - Hyperlipidemia, unspecified (5) DVT prophylaxis: Status: Acute Assessment and plan: sc lovenox (6) Discharge planning issues: Status: Acute Assessment and plan: Full code discharge home if blood cultures are negative. Subjective Subjective Interval history since last seen: Patient was admitted with cellulitis of his right proximal humerus which he attributes to a wasps sting about a month ago. He failed outpatient treatment w/ Keflex but it sounds like he was responding to Bactrim DS but had an incomplete response. He says that the swelling and redness has gone down. He is afebrile. Exam Narrative Exam Narrative: Right shoulder is not swollen and he has normal ROM, however he has some residual redness/purplish discoloration on the volar surface of the proximal humerus w/ some residual induration. Extrem Shoulder/upper arm images: 1. area of erythema/purple discoloration 2. area that is marked w/ ink markings indicating largest extent of his erythema Objective Last Vital Signs Temp 36.8 C 02/06/21 15:52 Pulse 66 02/06/21 15:52 Resp 17 02/06/21 15:52 BP 118/64 02/06/21 15:52 Pulse Ox 94 02/06/21 15:52 Laboratory Results - last 24 hr 02/06/21 02/06/21 02/06/21 06:06 06:06 06:06 WBC 5.75 RBC 4.37 Hgb 13.8 Hct 40.7 MCV 93.1 MCH 31.6 MCHC 33.9 RDW 12.0 Plt Count 206 MPV 8.9 Immature Gran % 0.5 Neutrophils % 59.5 Lymphocytes % 24.3 Monocytes % 8.9 Eosinophils % 6.3 Basophils % 0.5 Nucleated RBC % 0 Absolute Neutrophils 3.42 Absolute Lymphocytes 1.40 Absolute Monocytes 0.51 Absolute Eosinophils 0.36 Absolute Basophils 0.03 Sodium 140 Potassium 4.2 Chloride 104 Carbon Dioxide 30.3 Anion Gap 5.7 BUN 17 Creatinine 0.9 Estimated GFR/1.73 m2 >= 60.00 Glucose 104 Calcium 8.9 Magnesium 1.8
[2021-02-06] MEDS: Doxycycline Hyclate 100 MG CAP PO (19:57)
[2021-02-06] MEDS: Atorvastatin 40 MG TAB PO (19:57)
[2021-02-06 21:17] VITALS: BP 147/82; PULSE 62; RESP 18; TEMP 35.9; O2SAT 94
[2021-02-07 07:18] VITALS: BP 114/72; PULSE 74; RESP 18; TEMP 37; O2SAT 95
[2021-02-07] MEDS: Normal Saline Flush 10 ML SYR IVP (07:47)
[2021-02-07] MEDS: Famotidine 20 MG TAB PO (07:47)
[2021-02-07] MEDS: Losartan 50 MG TAB 100 MG PO (07:47)
[2021-02-07] MEDS: Aspirin E.C. 81 MG TABEC PO (07:47)
[2021-02-07] MEDS: Doxycycline Hyclate 100 MG CAP PO (07:48)
[2021-02-07] MEDS: hydroCHLOROthiazide 25 MG TAB 50 MG PO (07:48)
[2021-02-07 09:23] LABS: Vancomycin, Trough 9.6 ug/mL (10.0-20.0)
[2021-02-07] MEDS: VANCOMYCIN/WATER (PEG) 1.25 GM/250 ML BAG IV (10:58)
[2021-02-07] MEDS: Normal Saline 500 ML 100 ML IV (10:59)
--- NOTE | 2021-02-07 15:21 | WOUNDCONS ---
- If Service Date Differs Date of service: 02/07/21 Time of Service: 15:22 Wound Initial Evaluation Narrative: Dr. Castano asked wound nurse to take photograph for patients chart, though an official consult was never placed. This is so he can follow patient if the wound worsens in the future
--- NOTE | 2021-02-07 15:22 | PGE_ITS ---
Date of Service Date of service: 02/07/21 Time of Service: 15:23 Assessment and Plan Assessment and plan (1) Cellulitis of arm, right: Status: Acute Assessment and plan: blood cultures are negative at 48 hrs. all inflammatory markers were normal (i.e. normal WBC 5700, CRP 0.12). he remains afebrile. I will discharge him on doxycycline 100 mg bid for 10 days. This should cover both for any tick infection as well as any cellulitis (2) Insect bite: Status: Acute Assessment and plan: It is unclear which insect this was and, given prevalence of tick-borne illness in the region, I do think tick studies are worth checking. Tick studies are still pending. Qualifiers: Encounter type: sequela Site of insect bite: upper arm Laterality: right Qualified Code(s): S40.861S - Insect bite (nonvenomous) of right upper arm, sequela; W57.XXXS - Bitten or stung by nonvenomous insect and other nonven omous arthropods, sequela (3) Essential hypertension: Status: Chronic Assessment and plan: Continue home therapy (4) Hyperlipidemia: Status: Chronic Assessment and plan: continue home therapy Qualifiers: Hyperlipidemia type: unspecified Qualified Code(s): E78.5 - Hyper lipidemia, unspecified (5) DVT prophylaxis: Status: Acute Assessment and plan: sc lovenox (6) Discharge planning issues: Status: Acute Assessment and plan: Full code discharge home today. Subjective Subjective Interval history since last seen: Patient continues to do well. No fevers, and his inflammatory markers are all normal. The area of cellulitis has receded to a very small area under the proximal humerus on the dorsum just adjacent to the axilla, it is softer and the purplish discoloration is beginning to fade. See wound consult nurse's picture for details Exam Narrative Exam Narrative: Right shoulder is not swollen and he has normal ROM, he has minimal purplish discoloration of the skin over the proximal humerus on the dorsal surface just below the axilla and the skin is softer Objective Last Vital Signs Temp 37.0 C 02/07/21 07:18 Pulse 74 02/07/21 07:18 Resp 18 02/07/21 07:18 BP 114/72 02/07/21 07:18 Pulse Ox 95 02/07/21 07:18 Laboratory Results - last 24 hr 02/07/21 09:05 Vancomycin Trough 9.6 L
--- NOTE | 2021-02-07 15:30 | W.PM.DS.N ---
Date of service: 02/07/21 Time of Service: 15:31 DS: Diagnosis Discharge Diagnosis (1) Cellulitis of arm, right: Status: Acute Asessment and Plan: patient completed 2 1/2 days of vancomycin and was started on doxycycline (had two dose prior to discharge beginning on evening of 02/06). He will be discharged on 10 days of doxycycline 100 mg bid. Rickettsial panel is pending. blood cultures are all negative. (2) Insect bite: Status: Acute Asessment and Plan: cellulitis is resolving. now small residual area of discoloration of the skin under the right proximal humerus. no induration and no fevers and no inflammatory markers. awaiting Tick panel. Will treat for 10 days w/ doxycycline 100 mg bid (3) Essential hypertension: Status: Chronic Asessment and Plan: no change in home meds (4) Hyperlipidemia: Status: Chronic Asessment and Plan: no change in home meds (5) Discharge planning issues: Status: Resolved Asessment and Plan: dc home to follow up w/ his PCP next week. No need for home health services at this time. Discharge Plan Disposition Patient Disposition: HOME Condition: Improving Discharge Details Reason For Visit: Cellulitis RUE Post Wasp Sting,Failure Outpatient Admit Date/Time: 02/05/21 14:03 Admit Provider: Brenna Jacobsen Attending Provider: Brenna Jacobsen Primary Care Provider: Anika Robles Hospital Course Hospital Course: See H&P for details of his presentation and initial workup. Patient was admitted for treatment of cellulitis of his right proximal humerus d/t failure to respond completely to outpatient treatment. Initially he was on Keflex but then was switched to Bactrim DS. It sounds like he had a partial but incomplete response to the Bactrim. He was put on Vancomycin and had a good response w/ near complete resolution of the redness and total resolution of the induration under his proximal humerus. He never had any fevers during his hospital stay and his inflammatory markers were never elevated. He was started on doxycycline the night prior to discharge and will continue the same for 10 days. He had a tick panel sent but this is pending at discharge. Home Meds and New Rx's Prescriptions: New doxycycline hyclate 100 mg tablet,delayed release (DR/EC) 100 mg PO BID 10 Days Qty: 20 RF: 0 Continued atorvastatin 40 mg tablet 40 mg PO DAILY RF: 0 hydrochlorothiazide 25 mg tablet 25 mg PO DAILY Qty: 90 RF: 3 Glucosamine-Chondroitin Complx 1 EACH capsule 2 cap PO DAILY RF: 0 aspirin 81 MG tablet,delayed release (DR/EC) 81 mg PO DAILY RF: 0 acetaminophen 500 MG tablet 500 mg PO q4-6prn RF: 0 kvng extract 250 MG capsule 250 mg PO DAILY RF: 0 acetaminophen 325 MG tablet 650 mg PO Q4H PRN RF: 0 losartan 100 mg tablet 100 mg PO DAILY RF: 0 famotidine 20 MG tablet 20 tab PO DAILY RF: 0 hydrochlorothiazide 25 mg tablet 50 mg PO DAILY RF: 0 Discontinued sulfamethoxazole-trimethoprim [Bactrim DS] 800-160 mg tablet 1 tab PO BID 7 Days Qty: 14 RF: 0 Discharge Instructions Instructions: Cellulitis (DC) Stand Alone Forms: Nursing Discharge Form Referrals: Anika Robles [employer] [Primary Care Provider] - (call the office on Monday, 02/09 for follow up office visit in the next week) Activity:: Activity as Tolerated Equipment/Supplies:: No Equipment Needed Diet:: Normal Diet Discharge Orders Discharge Orders: Discharge Order (Routine); Ordered 02/07/21 Ordered By: Ha Castano Discharge Data Discharge Date/Time-TO BE ENTERED AT DEPARTURE: 02/07/21 16:33 DS: Summary Time Spent with Patient providing and/or coordinating discharge services: Less than 30 minutes Status at Discharge Functional status at discharge: independent ambulation Overall status at discharge: patient is back to baseline Mental Status: mental status grossly normal Speech and Movement: speech and movement normal Mood: congruent mood Affect: normal affect Exam Narrative Exam Narrative: Right shoulder is not swollen and he has normal ROM, he has minimal purplish discoloration of the skin over the proximal humerus on the dorsal surface just below the axilla and the skin is softer Psych Mental Status: mental status grossly normal Speech and Movement: speech and movement normal Mood: congruent mood Affect: normal affect DS: Data Vitals/I&O Vitals and I&O: Vital Signs Temperature 37.0 C 02/07/21 07:18 Temperature Source Tympanic 02/07/21 07:18 Pulse 74 02/07/21 07:18 Pulse Rhythm Regular 02/07/21 08:20 Respiratory Rate 18 02/07/21 07:18 Respiratory Effort Non-Labored 02/07/21 08:20 Respiratory Depth Normal 02/07/21 08:20 Respiratory Pattern Normal 02/07/21 08:20 Blood Pressure 114/72 02/07/21 07:18 Blood Pressure Mean 87 02/05/21 13:21 Blood Pressure Position Sitting 02/05/21 13:21 Pulse Oximetry 95 02/07/21 07:18 Oxygen Delivery Method Room Air 02/07/21 07:18 Oxygen Flow Rate 0 02/07/21 07:18 Pain Level 0 02/07/21 07:18 Comment 02/06/21 21:17 Intake & Output 02/06/21 02/07/21 02/07/21 23:59 11:59 23:59 Intake Total 250 / 564 250 / 730 480 / 730 Output Total 200 / 750 600 / 600 Balance 50 / -186 -350 / 130 480 / 130 Intake: Oral 250 / 364 250 / 730 480 / 730 Output: Urine 200 / 750 600 / 600 Other: Urine Color Yellow Yellow Urine Appearance Clear Clear Urine Odor None Voiding Methods Toilet Toilet Data Completed and Pending Labs on day of discharge: Labs from last 24 hours 02/07/21 09:05 Vancomycin Trough 9.6 L Preliminary micro results at discharge 02/05/21 12:45 Blood Culture - Preliminary Blood NO GROWTH 48 HOURS 02/05/21 12:20 Blood Culture - Preliminary Blood NO GROWTH 48 HOURS [facility] Medical History Ascending aortic aneurysm [facility] BPH without urinary obstruction Carotid artery stenosis (08/10/12) S/p L CEA 11/18/15 [facility] 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 Essential hypertension (10/23/12) GERD (gastroesophageal reflux disease) Hydrocele of testis (01/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 Hyperlipidemia (02/10/12) Baseline LDL 110; high intensity statin therapy (increased from moderate by Cardiology 05/2020) IFG (impaired fasting glucose) Neck pain (12/28/12) Osteoarth NOS-l/leg (08/10/12) Rotator cuff arthropathy of right shoulder Trigger ring finger of left hand Ventricular septal defect (02/10/12) [facility] Surgical History Repair of inguinal hernia (05/06/15) Right; Dr Ma Replacement of total knee joint (05/05/12) R 2012 L 2007 Status post carotid endarterectomy Left; Tanvir Gunnar Reynoso [facility] Status post total bilateral knee replacement (08/10/12) Family History Mother No problems noted. Father No problems noted. Brother No problems noted. Brother No problems noted. Brother Essential hypertension Brother No problems noted. Sister No problems noted. Sister No problems noted. Sister No problems noted. Social History Smoking/Tobacco Use Status: Former Tobacco Use Smoking risk assessment performed?: Yes Alcohol Intake: former Drug use: Never Substance use type: does not use Caregiver/Support person: No Household members: spouse Number of Children: 4 Pets and animals: No Current gender identity: male What type of physical activity do you participate in: regular exercise and other Details: Stays active Frequency: daily Seatbelt use: always Drive intox or ride w/intox drop hammer pile driver operator: No Water heater temp set <120 deg: Yes Working smoke detector in home: Yes Fire extinguisher in home: Yes Carbon monox detector in home: Yes Firearms in home: No Do you feel safe at home: Yes Do you feel safe in your relationship?: Yes
[2021-02-07 15:43] VITALS: BP 136/67; PULSE 68; RESP 18; TEMP 36.7; O2SAT 94
--- NOTE | 2021-02-07 16:23 | PDOC.CMDIS ---
- If Service Date Differs Date of service: 02/07/21 Time of Service: 16:23 LACE Index Scoring Tool - Questions: Length of Stay (in days): 2 Acuity (Admit via E.D.?): Yes E.D. Visits: 2 - Answers: Total Score: 7 Risk of Readmission: Low Risk Care Management Discharge Reason for Hospitalization: cellulitis of right arm Discharge Plan: Uriel will be discharged home with no new services. He will follow up with his community providers and plan of care and transport with family. Patient/Family Education Needs: Review of discharge instructions, medications, limitations, activity, folllow up plan, Ask Me Three
[2021-02-09 13:10] LABS: Lyme Ab w Rflx to Lyme Confirm Positive (Negative)
[2021-02-09 15:54] LABS: Lyme IgG Ab Positive (Negative); Lyme IgM Ab Positive (Negative)
[2021-02-09 21:16] LABS: Anaplasma phagocytophilum Negative (Negative); B. miyamotoi PCR Negative (Negative); Babesia divergens/MO-1 Negative (Negative); Babesia duncani Negative (Negative); Babesia microti Negative (Negative); Ehrlichia chaffeensis Negative (Negative); Ehrlichia ewingii/canis Negative (Negative); Ehrlichia muris eauclairensis Negative (Negative)
== END 2021-02-07 16:33 | disposition home or self-care (01) | DRG 603 ==
LOC: ER 11:58 → MS 15:31
PROVIDERS: Internal Medicine; Admitting Provider Internal Medicine; Emergency Provider Physician Assistant; PCP Nurse Practitioner Family; Visit Provider Internal Medicine
DX: L03.113 Cellulitis of right upper limb (principal); Q21.0 Ventricular septal defect; E78.5 Hyperlipidemia, unspecified; I10 Essential (primary) hypertension; Z20.822 Contact with and (suspected) exposure to COVID-19; I71.2 Thoracic aortic aneurysm, without rupture; S40.861S Insect bite (nonvenomous) of right upper arm, sequela; W57.XXXS Bitten or stung by nonvenomous insect and other nonvenomous arthropods, sequela; N40.0 Benign prostatic hyperplasia without lower urinary tract symptoms; K21.9 Gastro-esophageal reflux disease without esophagitis; M54.2 Cervicalgia; R73.01 Impaired fasting glucose; Z96.653 Presence of artificial knee joint, bilateral
CPT/HCPCS: 36415; 76881; 80048; 80053; 86617; 87040; 87635; 87798; J1650; 73030; 80202; 83735; 85025; 86140; 86618; 99223; 99231; 99238

== ENCOUNTER 2021-05-13 02:40 | Outpatient (CLI) | payer MEDICARE, BC, SELFPAY ==
[2021-05-13 14:02] LABS: Hemoglobin A1C 5.8 % (<5.7)
[2021-05-13 14:40] LABS: Calculated LDL 49 mg/dL (<100); Cholesterol 114 mg/dL (<200); HDL Cholesterol 48 mg/dL (40-60); Triglyceride 88 mg/dL (<150)
== END 2021-05-13 02:41 | disposition home or self-care (01) ==
LOC: LBO 02:40
PROVIDERS: PCP Nurse Practitioner Family; Visit Provider Nurse Practitioner Family
DX: R73.01 Impaired fasting glucose; I10 Essential (primary) hypertension; E78.5 Hyperlipidemia, unspecified
CPT/HCPCS: 36415; 80061; 83036

== ENCOUNTER 2022-03-31 12:21 | Outpatient (CLI) | payer MEDICARE, BC, SELFPAY ==
[2022-03-31 08:12] LABS: Abs Immature Grans 0.02 10^3/uL (0.0-0.06); Absolute Basophil Count 0.03 10^3/uL (0.0-0.2); Absolute Eosinophil Count 0.31 10^3/uL (0.0-0.7); Absolute Lymphocyte Count 2.04 10^3/uL (1.2-3.4); Absolute Monocyte Count 0.55 10^3/uL (0.1-0.8); Absolute Neutrophil Count 3.08 10^3/uL (1.2-6.7); Basophils % 0.5; Eosinophils % 5.1; HGB 15.2 g/dL (13.5-17.5); Immature Grans % 0.3; Lymphocytes % 33.8; MCH 32.1 pg (27.0-33.0); MCHC 34.5 % (32.0-36.0); MCV 93 fL (80-95); MPV 8.8 fL (8.0-11.0); Monocytes % 9.1; Neutrophils % 51.2; Platelet Count 198 10^3/uL (130-400); RBC 4.74 10^6/uL (4.36-5.78); RDW 12.4 % (11.8-14.1); RDW-SD 42.6 fL; WBC 6.03 10^3/uL (4.4-10.8)
[2022-03-31 08:50] LABS: ALT 29 U/L (16-63); AST 24 U/L (15-37); Albumin 3.8 g/dL (3.4-5.0); Alkaline Phosphatase 66 U/L (46-116); Anion Gap 4.4 mmol/L (3-11); BUN 18 mg/dL (7-18); Bilirubin, Total 0.8 mg/dL (0.2-1.0); CO2 30.6 mmol/L (21.0-32.0); Chloride 105 mmol/L (98-107); Estimated GFR 77.04 (mL/min/1.73m2); Glucose 107 mg/dL (74-106); Potassium 3.9 mmol/L (3.5-5.1); Sodium 140 mmol/L (136-145); Total Protein 7.1 g/dL (6.4-8.2)
[2022-03-31 09:09] LABS: Calculated LDL 46 mg/dL (<100); Cholesterol 108 mg/dL (<200); HDL Cholesterol 55 mg/dL (40-60); Triglyceride 39 mg/dL (<150)
== END 2022-03-31 12:22 | disposition home or self-care (01) ==
LOC: LBO 12:23
PROVIDERS: PCP Nurse Practitioner Family; Visit Provider Nurse Practitioner Family
DX: E78.5 Hyperlipidemia, unspecified (principal); I10 Essential (primary) hypertension; Z51.81 Encounter for therapeutic drug level monitoring
CPT/HCPCS: 36415; 80053; 80061; 85025

== ENCOUNTER 2022-09-27 03:00 | Outpatient (CLI) | payer MEDICARE, BC, SELFPAY ==
[2022-10-04 10:02] LABS: Anion Gap 4.5 mmol/L (3-11); BUN 18 mg/dL (7-18); CO2 31.5 mmol/L (21.0-32.0); CREATININE 0.9 mg/dL (0.70-1.30); Chloride 103 mmol/L (98-107); Estimated GFR 87.42 (mL/min/1.73m2); Glucose 102 mg/dL (74-106); Potassium 4.2 mmol/L (3.5-5.1); Sodium 139 mmol/L (136-145)
== END 2022-09-27 03:01 | disposition home or self-care (01) ==
LOC: LBO 03:00
PROVIDERS: PCP Nurse Practitioner Family; Visit Provider Nurse Practitioner Family
DX: I10 Essential (primary) hypertension (principal); R73.01 Impaired fasting glucose; E78.5 Hyperlipidemia, unspecified
CPT/HCPCS: 36415; 80048; 80053; 80061; 83036; 85025

== ENCOUNTER 2023-03-16 01:06 | Outpatient (CLI) | payer MEDICARE, BC, SELFPAY ==
[2023-03-16 09:42] LABS: Abs Immature Grans 0.02 10^3/uL (0.0-0.06); Absolute Basophil Count 0.05 10^3/uL (0.0-0.2); Absolute Eosinophil Count 0.43 10^3/uL (0.0-0.7); Absolute Lymphocyte Count 1.84 10^3/uL (1.2-3.4); Absolute Monocyte Count 0.83 10^3/uL (0.1-0.8); Absolute Neutrophil Count 4.96 10^3/uL (1.2-6.7); Basophils % 0.6; Eosinophils % 5.3; HCT 43.6 % (40.0-50.0); HGB 14.9 g/dL (13.5-17.5); Immature Grans % 0.2; Lymphocytes % 22.6; MCH 31.4 pg (27.0-33.0); MCHC 34.2 % (32.0-36.0); MCV 92 fL (80-95); Monocytes % 10.2; Neutrophils % 61.1; Platelet Count 212 10^3/uL (130-400); RBC 4.75 10^6/uL (4.36-5.78); RDW 12.4 % (11.8-14.1); WBC 8.13 10^3/uL (4.4-10.8)
[2023-03-16 10:03] LABS: ALT 25 U/L (16-63); AST 27 U/L (15-37); Albumin 3.8 g/dL (3.4-5.0); Alkaline Phosphatase 75 U/L (46-116); Anion Gap 8.1 mmol/L (3-11); BUN 12 mg/dL (7-18); Bilirubin, Total 0.8 mg/dL (0.2-1.0); CO2 26.9 mmol/L (21.0-32.0); CREATININE 0.9 mg/dL (0.70-1.30); Calcium 9.6 mg/dL (8.5-10.1); Calculated LDL 54 mg/dL (<100); Chloride 104 mmol/L (98-107); Cholesterol 121 mg/dL (<200); Estimated GFR 86.88 (mL/min/1.73m2); Glucose 109 mg/dL (74-106); HDL Cholesterol 61 mg/dL (40-60); Potassium 4.4 mmol/L (3.5-5.1); Sodium 139 mmol/L (136-145); TSH 2.18 uIU/mL (0.36-3.74); Total Protein 7.5 g/dL (6.4-8.2); Triglyceride 31 mg/dL (<150)
[2023-03-16 10:20] LABS: Hemoglobin A1C 5.7 % (<5.7)
== END 2023-03-16 01:07 | disposition home or self-care (01) ==
LOC: LBO 01:06
PROVIDERS: PCP Nurse Practitioner Family; Visit Provider Nurse Practitioner Family
DX: E78.5 Hyperlipidemia, unspecified (principal); I10 Essential (primary) hypertension; R73.01 Impaired fasting glucose; Z51.81 Encounter for therapeutic drug level monitoring; I48.0 Paroxysmal atrial fibrillation
CPT/HCPCS: 36415; 80053; 80061; 83036; 84443; 85025

== ENCOUNTER 2023-05-08 13:14 | Outpatient (CLI) | payer MEDICARE, BC, SELFPAY ==
--- NOTE | 2023-05-08 13:00 | RT.EKG_ITS ---
APPROVED REPORT Exam: Resting ECG Reason for Exam: Left sided pain Patient Location: O HR:64 bpm ECG Measurements Heart Rate 64 AXIS CA 202 P 55 QRSd 95 QRS 35 QT 444 T 63 QTc 458 Conclusion Sinus rhythm...normal P axis, V-rate 50- 99 Probable left ventricular hypertrophy...multiple LVH criteria
== END 2023-05-08 13:15 | disposition home or self-care (01) ==
LOC: DI.KIM 13:15
PROVIDERS: PCP Nurse Practitioner Family; Visit Provider Family Medicine
DX: M79.602 Pain in left arm (principal)
CPT/HCPCS: 93010

== ENCOUNTER → 2023-05-08 13:51 | Outpatient (CLI) | payer MEDICARE, BC, SELFPAY ==
--- NOTE | 2023-05-08 13:45 | DI.RAD_ITS ---
Exam(s) XR CHEST 2V PA LATERAL EXAM: XR CHEST 2V PA LATERAL CLINICAL HISTORY: Chest pain R07.9, known aorotic aneurysm. TECHNIQUE: 2D digital imaging was performed. COMPARISON: CR CHEST 2 VIEWS PA,LAT from 11/04/2013 FINDINGS: 2 views: Heart size is normal. The mediastinum is not widened. Elevated right hemidiaphragm is unchanged from 2014. Right lung is clear. There is some scarring in the lateral left lung base which is unchanged. No new pulmonary findings. No pleural effusions. Widened right AC joint unchanged from 2014 and probably postsurgical IMPRESSION: No acute pulmonary findings.Scarring or atelectasis in left lung base is unchanged from 2014, as is m ildly elevated right hemidiaphragm. No new pulmonary findings. DATA REPOSITORY: RADIATION DOSE DELIVERED:
== END ==
PROVIDERS: PCP Nurse Practitioner Family; Visit Provider Family Medicine
DX: R07.9 Chest pain, unspecified (principal)
CPT/HCPCS: 71046

== ENCOUNTER 2023-05-08 20:25 | Outpatient (CLI) | payer MEDICARE, BC, SELFPAY ==
[2023-05-08 14:44] LABS: D-Dimer 529 ng/mlFEU (<500)
== END 2023-05-08 20:26 | disposition home or self-care (01) ==
LOC: LBO 20:25
PROVIDERS: PCP Nurse Practitioner Family; Visit Provider Family Medicine
DX: R07.9 Chest pain, unspecified (principal)
CPT/HCPCS: 36415; 71046; 85379

== ENCOUNTER → 2023-05-09 15:53 | Outpatient (CLI) | payer MEDICARE, BC, SELFPAY ==
--- NOTE | 2023-05-09 11:45 | DI.CT_ITS ---
Exam(s) CT CHEST PE CTA EXAM: CT CHEST PE CTA CLINICAL HISTORY: Chest pain, elevated D-dimer, R07.9. TECHNIQUE: Imaging Protocol: Axial CT angiography was performed with multi-slice acquisition and mu lti-planar reconstructions as well as axial, coronal and sagittal MIP reconstructions. CONTRAST MATERIAL: Intravenous: Omnipaque 350 Contrast volume:100 ml COMPARISON: CR XR CHEST 2V PA LATERAL from 05/08/2023 FINDINGS: Pulmonary Arteries: No evidence of filling defect to suggest pulmonary emboli. Tracheobronchial tree: Patent where visualized. Mediastinum and Lily: No dominant adenopathy or fluid collection. Pulmonary parenchyma: No consolidation or dominant measurable mass. Pleura: No effusion or pneumothorax. Heart: The heart is mildly dilated. Mild coronary artery calcifications are seen. Aorta: Thoracic aorta non-dilated. No aneurysm. No dissection. Upper abdomen: No significant findings. Bones: Prominent endplate osteophytes. Tubes, Catheters, and Lines: None Soft tissues: Bilateral gynecomastia. IMPRESSION: No evidence of pulmonary embolism or other acute abnormality.. RADIATION DOSE DELIVERED: Total DLP DATA REPOSITORY: All CT scans at this facility are submitted to the National Radiology Data Registry (NRDR) Dose Index Registry (DIR) with the [employer] (A[employer]). RADIATION OPTIMIZATION: All CT scans at this facility use at least one of these dose optimization te chniques: automated exposure control; mA and/or kV adjustment per patient size (includes targeted exa ms where dose is matched to clinical indication); or iterative reconstruction.
[2023-05-09 13:58] LABS: Estimated GFR 76.56 (mL/min/1.73m2)
[2023-05-09] MEDS: Normal Saline Flush 10 ML SYR IVP (14:23)
[2023-05-09] MEDS: Normal Saline - Diluent 50 ML VIAL IJ (14:24)
[2023-05-09] MEDS: Omnipaque 350 MG/ML 100 ML BTL IJ (14:24)
== END ==
PROVIDERS: PCP Nurse Practitioner Family; Visit Provider Family Medicine
DX: R07.9 Chest pain, unspecified (principal)
CPT/HCPCS: 71275; 82565; J3490

== ENCOUNTER 2023-05-10 06:22 | Emergency (ER) | payer MEDICARE, BC, SELFPAY ==
[2023-05-10 06:38] VITALS: BP 231/95; PULSE 78; RESP 20; TEMP 36.7; O2SAT 99
[2023-05-10 07:12] LABS: Bilirubin Negative (Negative); Blood Moderate (Negative); Clarity Sl Cloudy (Clear); Glucose Negative (Negative); Ketones Negative (Negative); Leukocyte Esterase Negative (Negative); Nitrite Negative (Negative); Specific Gravity <= 1.005 (1.005-1.025); Urobilinogen 0.2 mg/dL (Up to 0.2); pH 5.5 (5-8)
[2023-05-10 07:24] LABS: Bacteria Rare HPF (Negative); C & S Indicated? No; Casts Negative LPF (Negative); Crystals Negative HPF (Negative); Epithelial Cells Rare HPF (Negative); Mucus Negative (Negative); WBC 0-2 HPF (0-5)
--- NOTE | 2023-05-10 07:29 | ED.GENADUL_ITS ---
Discharge Plan Discharge Details Chief Complaint: Urinary Clinical Impression: Acute urinary retention Primary Care Provider: Anika Robles ED Provider: Muna Bobby Home Meds and New Rx's Prescriptions: No Action spironolactone 25 mg tablet 25 mg PO DAILY dofetilide [Tikosyn] 250 mcg capsule 250 mcg PO Q12H atorvastatin 40 mg tablet 40 mg PO DAILY hydrochlorothiazide 25 mg tablet 25 mg PO DAILY Qty: 90 3RF Glucosamine-Chondroitin Complx 1 EACH capsule 2 cap PO DAILY acetaminophen 500 MG tablet 500 mg PO q4-6prn Patient Comments: 11/15/17 Not taking scheduled. zn kvng extract 250 MG capsule 250 mg PO DAILY losartan 100 mg tablet 100 mg PO DAILY Rx Instructions: 06/01/20 Increased from 50 to 100mg by Puppy Trainer. mk Eliquis 5 mg tablet 5 mg PO BID Discharge Instructions Instructions: Urinary Retention in Men (ED), Boston Catheter Placement and Care (ED) Additional Instructions: Please keep Boston catheter in place until you are evaluated by urology. Return to the emergency department if the catheter is not draining, you develop fever or significant pain Referrals: Hammad Dangelo MD [ [facility] STAFF PHYSICIAN] - Medical Decision Making Emergent evaluation of difficulty urinating. Initial differential includes urinary retention, obstruction, infection. A Boston catheter was placed and almost 1 L of urine was removed. Will check blood work to ensure normal renal function. 0745: Urinalysis without infection. Final disposition pending blood work. If normal, can be discharged with urology follow-up. Medical Records Medical records reviewed: Yes I reviewed the patient's medical records. Lab Data Lab results reviewed: Yes I reviewed the patient's lab results. HPI General Date/Time Provider Initiated Documentation: 05/10/23 06:47 . Limitations to Documentation: no limitations . Information obtained by: patient . HPI Narrative: 77-year-old gentleman with past medical history of A-fib, PAD, BPH presents for evaluation of difficulty urinating. He reports that he has not urinated since 10 PM last night. He feels a lot of pain and pressure in his lower abdomen. This is never happened before. He is attempted to urinate but not been able to get anything out. Related Data Home Medications Medication Instructions Recorded Confirmed acetaminophen 500 mg tablet 500 mg PO q4-6prn 08/13/12 05/10/23 [id number] C-Mn 2 cap PO DAILY 08/13/12 05/10/23 capsule (Glucosamine-Chondroitin Complex capsule) kvng (Zingiber officinalis) 250 250 mg PO DAILY 04/26/13 05/10/23 mg capsule (kvng extract) losartan 100 mg tablet 100 mg PO DAILY 06/02/20 05/10/23 apixaban 5 mg tablet (Eliquis) 5 mg PO BID 06/10/21 05/10/23 dofetilide 250 mcg capsule 250 mcg PO Q12H 08/02/22 05/10/23 (Tikosyn) spironolactone 25 mg tablet 25 mg PO DAILY 08/02/22 05/10/23 atorvastatin 40 mg tablet 40 mg PO DAILY 05/08/23 05/10/23 Allergies Allergy/AdvReac Type Severity Reaction Status Date / Time No Known Allergies Allergy Verified 05/10/23 06:41 General Stated Complaint: Urinary GREG: 4 PFSH All Active Problems (Updated 05/10/23 @ 07:34 by Muna Bobby MD) Acute urinary retention (Acute) Skin lesion of face (Acute) Chronic anticoagulation (Chronic) PAD (peripheral artery disease) (Chronic) Perimembranous ventricular septal defect (Chronic) [facility] Cardiology Atrial fibrillation (Chronic 06/01/21) [facility]; s/p cardioversion 07/20/2021 with recurrence; dofetilide started 08/2022 Ascending aortic aneurysm (Chronic) [facility] Cardiology IFG (impaired fasting glucose) (Chronic) Osteoarth NOS-l/leg (Chronic 08/10/12) Neck pain (Chronic 12/28/12) Hyperlipidemia (Chronic 02/10/12) Baseline LDL 110; high intensity statin therapy (increased from moderate by Cardiology 05/2020) Essential hypertension (Chronic 10/23/12) 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 Carotid artery stenosis (Chronic 08/10/12) S/p L CEA 11/18/15 [facility] BPH without urinary obstruction (Chronic) Medical History Amaurosis fugax, left eye (~10/2015) TIA Lyme disease (~02/2021) Rotator cuff arthropathy of right shoulder Trigger ring finger of left hand Hydrocele of testis (01/30/13) left GERD (gastroesophageal reflux disease) Surgical History Status post carotid endarterectomy (~11/18/15) Left; Tanvir BerryAlba Edgardo [facility] Status post total bilateral knee replacement (08/10/12) 2007 (L), 2011 (R) Repair of inguinal hernia (05/06/15) Right; Dr Ma Family History Mother No problems noted. Father No problems noted. Brother No problems noted. Brother No problems noted. Brother Essential hypertension Brother No problems noted. Sister No problems noted. Sister No problems noted. Sister No problems noted. Social History Smoking/Tobacco Use Status: Never Smoking risk assessment performed?: Yes Alcohol Intake: former Drug use: Never Substance use type: does not use Adopted: No Caregiver/Support person: No Foster care: No Household members: spouse Housing: house Number of Children: 4 Communication Needs: Hard of Hearing Do you need help understanding health information?: Often current occupation: Retired Pets and animals: No Do you think of yourself as: straight/heterosexual Current gender identity: male What is your relationship status?: How often do you talk on the phone with friends or family?: decline to answer How often do you get together with friends or relatives?: twice per week Do you belong to any clubs or organized social groups?: no Panel score (0-1 are the most socially isolated patients): 1 What type of physical activity do you participate in: regular exercise and other Details: Stays active Duration: > 90 minutes/day Frequency: daily Special katiuska needs: No Seatbelt use: always Helmet use: No Drive intox or ride w/intox mixer driver: No Water heater temp set <120 deg: Yes Working smoke detector in home: Yes Fire extinguisher in home: Yes Carbon monox detector in home: Yes Firearms in home: No Do you feel safe at home: Yes Do you feel safe in your relationship?: Yes Exam Narrative Exam Narrative: Review of Systems: All systems reviewed & are unremarkable except as noted in HPI and below Well-developed, appears uncomfortable NACT PERRL, normal conjunctiva RRR Unlabored respiratory effort + suprapubic tenderness Extremities w/o deformity, no cyanosis, no edema No rashes or lesions. no focal neurologic deficits Appropriate mood and affect Course Vital Signs Vital signs: Vital Signs Temperature 36.7 C 05/10/23 06:38 Pulse 78 05/10/23 06:38 Respiratory Rate 20 05/10/23 06:38 Blood Pressure 231/95 H 05/10/23 06:38 Pulse Oximetry 99 05/10/23 06:38 Temperature 36.7 C 05/10/23 06:38 Temperature Source Temporal Artery Scan 05/10/23 06:38 Pulse 78 05/10/23 06:38 Respiratory Rate 20 05/10/23 06:38 Respiratory Effort Normal 05/10/23 06:40 Blood Pressure 231/95 H 05/10/23 06:38 Blood Pressure Position Supine 05/10/23 06:38 Pulse Oximetry 99 05/10/23 06:38 Oxygen Delivery Method Room Air 05/10/23 06:38 Oxygen Flow Rate 0 05/10/23 06:38 Pain Level 9 05/10/23 06:38 Lab/Test Results Lab/Test Results: Laboratory Tests Range/Units 05/10/23 07:05 Urine Color (Yellow) Yellow Urine Clarity (Clear) Sl Cloudy Urine pH (5-8) 5.5 Ur Specific [place] (1.005-1.025) <= 1.005 Urine Protein (Negative) mg/dL Negative Urine Ketones (Negative) mg/dL Negative Urine Blood (Negative) Moderate H Urine Nitrite (Negative) Negative Urine Bilirubin (Negative) Negative Urine Urobilinogen (Up to 0.2) mg/dL 0.2 Ur Leukocyte Esterase (Negative) Negative Urine RBC (0-2) HPF 10-20 H Urine WBC (0-5) HPF 0-2 Ur Epithelial Cells (Negative) HPF Rare Urine Crystals (Negative) HPF Negative Urine Bacteria (Negative) HPF Rare Urine Casts (Negative) LPF Negative Urine Mucus (Negative) Negative Ur Culture Indicated? No Urine Glucose (Negative) mg/dL Negative Sign Out Sign Out Data: Sign Out Comment: urinary retention, s/p boston. dispo pending labs to check cr. follow up referral for urology placed. Last updated by Muna Bobby MD at 05/10/23 07:43
--- NOTE | 2023-05-10 07:36 | NUR.NOTE ---
Referral faxed to urology for a appointment next week for urinary retention
[2023-05-10 07:54] LABS: Abs Immature Grans 0.06 10^3/uL (0.0-0.06); Absolute Basophil Count 0.03 10^3/uL (0.0-0.2); Absolute Lymphocyte Count 0.95 10^3/uL (1.2-3.4); Absolute Monocyte Count 0.47 10^3/uL (0.1-0.8); Absolute Neutrophil Count 7.65 10^3/uL (1.2-6.7); Basophils % 0.3; Eosinophils % 1.1; HCT 39.5 % (40.0-50.0); HGB 13.9 g/dL (13.5-17.5); Immature Grans % 0.6; Lymphocytes % 10.3; MCHC 35.2 % (32.0-36.0); MCV 91 fL (80-95); MPV 8.6 fL (8.0-11.0); Monocytes % 5.1; Neutrophils % 82.6; Platelet Count 199 10^3/uL (130-400); RBC 4.35 10^6/uL (4.36-5.78); RDW 12.1 % (11.8-14.1); RDW-SD 40.5 fL; WBC 9.26 10^3/uL (4.4-10.8)
[2023-05-10 08:04] LABS: BUN 16 mg/dL (7-18); CREATININE 0.8 mg/dL (0.70-1.30); Calcium 9.1 mg/dL (8.5-10.1); Chloride 102 mmol/L (98-107); Estimated GFR 90.02 (mL/min/1.73m2); Glucose 128 mg/dL (74-106); Potassium 3.8 mmol/L (3.5-5.1); Sodium 138 mmol/L (136-145)
--- NOTE | 2023-05-10 08:28 | W.EDPROG ---
Date of service: 05/10/23 Time of Service: 08:28 Medical Decision Making Patient resting actively no acute distress. Feeling much better after Boston catheter placement. Labs unremarkable. Will be discharged home with home care instructions and return precautions. Sign Out Sign Out Data: Sign Out Comment: urinary retention, s/p boston. dispo pending labs to check cr. follow up referral for urology placed. Last updated by Muna Bobby MD at 05/10/23 07:43 Discharge Plan Disposition Patient Disposition: Home Condition: Improving Discharge Details Chief Complaint: Urinary Clinical Impression: Acute urinary retention Primary Care Provider: Anika Robles ED Provider: Gustavo Jordan Home Meds and New Rx's Prescriptions: No Action spironolactone 25 mg tablet 25 mg PO DAILY dofetilide [Tikosyn] 250 mcg capsule 250 mcg PO Q12H atorvastatin 40 mg tablet 40 mg PO DAILY hydrochlorothiazide 25 mg tablet 25 mg PO DAILY Qty: 90 3RF Glucosamine-Chondroitin Complx 1 EACH capsule 2 cap PO DAILY acetaminophen 500 MG tablet 500 mg PO q4-6prn Patient Comments: 11/15/17 Not taking scheduled. zn kvng extract 250 MG capsule 250 mg PO DAILY losartan 100 mg tablet 100 mg PO DAILY Rx Instructions: 06/01/20 Increased from 50 to 100mg by Cottage Cheese Maker. mk Eliquis 5 mg tablet 5 mg PO BID Discharge Instructions Instructions: Urinary Retention in Men (ED), Boston Catheter Placement and Care (ED) Additional Instructions: Please keep Boston catheter in place until you are evaluated by urology. Return to the emergency department if the catheter is not draining, you develop fever or significant pain Referrals: Hammad Dangelo MD [ [facility] STAFF PHYSICIAN] -
== END 2023-05-10 09:02 | disposition home or self-care (01) ==
PROVIDERS: Emergency Medicine; Emergency Provider Emergency Medicine; PCP Nurse Practitioner Family
DX: R33.8 Other retention of urine (principal); T83.9XXA Unspecified complication of genitourinary prosthetic device, implant and graft, initial encounter; Z87.430 Personal history of prostatic dysplasia
CPT/HCPCS: 00123; 36415; 51702; 80048; 99283; 81003; 81015; 85025

== ENCOUNTER 2023-05-11 10:22 | Emergency (ER) | payer MEDICARE, BC, SELFPAY ==
[2023-05-11 10:30] VITALS: BP 130/54; PULSE 75; RESP 20; TEMP 36.4; O2SAT 95
[2023-05-11 10:47] VITALS: BP 130/54; PULSE 75; RESP 20; TEMP 36.4; O2SAT 95
--- NOTE | 2023-05-11 11:08 | W.ED.GENAD ---
Discharge Plan Disposition Patient Disposition: Home Condition: Good Discharge Details Clinical Impression: Boston catheter problem Primary Care Provider: Anika Robles ED Provider: Rosetta Nolen Home Meds and New Rx's Prescriptions: No Action spironolactone 25 mg tablet 25 mg PO DAILY dofetilide [Tikosyn] 250 mcg capsule 250 mcg PO Q12H atorvastatin 40 mg tablet 40 mg PO DAILY hydrochlorothiazide 25 mg tablet 25 mg PO DAILY Qty: 90 3RF Glucosamine-Chondroitin Complx 1 EACH capsule 2 cap PO DAILY acetaminophen 500 MG tablet 500 mg PO q4-6prn Patient Comments: 11/15/17 Not taking scheduled. zn kvng extract 250 MG capsule 250 mg PO DAILY losartan 100 mg tablet 100 mg PO DAILY Rx Instructions: 06/01/20 Increased from 50 to 100mg by Oven Dauber. mk Eliquis 5 mg tablet 5 mg PO BID Discharge Instructions Instructions: Boston Catheter Placement and Care (ED) Medical Decision Making 77yo M presenting with leaking around urinary catheter since this morning. Seen in this ED yesterday for urinary retention (never had issues with this in the past); boston placed and drained large amount of urine. History from patient, spouse at bedside, and [facility] record review. Vital signs reassuring on arrival, no abdominal tenderness on exam, boston in place and draining yellow urine. Catheter flushed easily, no clots noted, on reassessment catheter remains draining well. No evident leaking. May have been positional. No indication of urinary retention currently, catheter appears to be functioning well. Discharged home; discharge instructions including return precautions were reviewed with patient who verbalized understanding. All questions were answered and they are in full agreement with the plan. HPI General Mode of arrival: ambulatory. Date/Time Provider Initiated Documentation: 05/11/23 10:24. Limitations to Documentation: no limitations. Information obtained by: patient, family and old records reviewed. HPI Narrative: 77yo M presenting with leaking around urinary catheter. History from patient, spouse at bedside, and [facility] record review. Seen in this ED yesterday for urinary retention (never had issues with this in the past); boston placed and drained large amount of urine. This morning noted leaking urine around catheter. There has been some blood in it. No recurrence of pain. He is otherwise in his usual state of health. Related Data Home Medications Medication Instructions Recorded Confirmed acetaminophen 500 mg tablet 500 mg PO q4-6prn 08/13/12 05/11/23 [id number] C-Mn 2 cap PO DAILY 08/13/12 05/11/23 capsule (Glucosamine-Chondroitin Complex capsule) kvng (Zingiber officinalis) 250 250 mg PO DAILY 04/26/13 05/11/23 mg capsule (kvng extract) losartan 100 mg tablet 100 mg PO DAILY 06/02/20 05/11/23 apixaban 5 mg tablet (Eliquis) 5 mg PO BID 06/10/21 05/11/23 dofetilide 250 mcg capsule 250 mcg PO Q12H 08/02/22 05/11/23 (Tikosyn) spironolactone 25 mg tablet 25 mg PO DAILY 08/02/22 05/11/23 atorvastatin 40 mg tablet 40 mg PO DAILY 05/08/23 05/11/23 Allergies Allergy/AdvReac Type Severity Reaction Status Date / Time No Known Allergies Allergy Verified 05/11/23 10:37 General Stated Complaint: Urinary GREG: 3 Review of Systems Narrative: see HPI PFSH All Active Problems (Updated 05/11/23 @ 12:10 by Rosetta Nolen MD) Boston catheter problem (Acute) Acute urinary retention (Acute) Skin lesion of face (Acute) Chronic anticoagulation (Chronic) PAD (peripheral artery disease) (Chronic) Perimembranous ventricular septal defect (Chronic) [facility] Cardiology Atrial fibrillation (Chronic 06/01/21) [facility] Cardiology; s/p cardioversion 07/20/2021 with recurrence; dofetilide started 08/2022 Ascending aortic aneurysm (Chronic) [facility] Cardiology IFG (impaired fasting glucose) (Chronic) Osteoarth NOS-l/leg (Chronic 08/10/12) Neck pain (Chronic 12/28/12) Hyperlipidemia (Chronic 02/10/12) Baseline LDL 110; high intensity statin therapy (increased from moderate by Cardiology 05/2020) Essential hypertension (Chronic 10/23/12) 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 Carotid artery stenosis (Chronic 08/10/12) S/p L CEA 11/18/15 [facility] BPH without urinary obstruction (Chronic) Medical History Amaurosis fugax, left eye (~10/2015) TIA Lyme disease (~02/2021) Rotator cuff arthropathy of right shoulder Trigger ring finger of left hand Hydrocele of testis (01/30/13) left GERD (gastroesophageal reflux disease) Surgical History Status post carotid endarterectomy (~11/18/15) Left; Tanvir Reynoso [facility] Status post total bilateral knee replacement (08/10/12) 2007 (L), 2011 (R) Repair of inguinal hernia (05/06/15) Right; Dr Ma Family History Mother No problems noted. Father No problems noted. Brother No problems noted. Brother No problems noted. Brother Essential hypertension Brother No problems noted. Sister No problems noted. Sister No problems noted. Sister No problems noted. Social History Smoking/Tobacco Use Status: Never Smoking risk assessment performed?: Yes Alcohol Intake: former Drug use: Never Substance use type: does not use Adopted: No Caregiver/Support person: No Foster care: No Household members: spouse Housing: house Number of Children: 4 Communication Needs: Hard of Hearing Do you need help understanding health information?: Often current occupation: Retired Pets and animals: No Do you think of yourself as: straight/heterosexual Current gender identity: male What is your relationship status?: How often do you talk on the phone with friends or family?: decline to answer How often do you get together with friends or relatives?: twice per week Do you belong to any clubs or organized social groups?: no Panel score (0-1 are the most socially isolated patients): 1 What type of physical activity do you participate in: regular exercise and other Details: Stays active Duration: > 90 minutes/day Frequency: daily Special katiuska needs: No Seatbelt use: always Helmet use: No Drive intox or ride w/intox commercial trailer truck driver: No Water heater temp set <120 deg: Yes Working smoke detector in home: Yes Fire extinguisher in home: Yes Carbon monox detector in home: Yes Firearms in home: No Do you feel safe at home: Yes Do you feel safe in your relationship?: Yes Exam Narrative Exam Narrative: General: Alert, well appearing, well nourished, in no acute distress. Head: Normocephalic, atraumatic Neck: Trachea midline, Neck supple. Cardiac: No cyanosis. Resp: No respiratory distress. Speaking in full sentences. . Abd: Soft, non-distended, nontender : No suprapubic tenderness. Boston catheter in place, draining yellow urine. Extremities: No deformities. No peripheral edema. Neurologic: GCS 15. Moves all extremities freely against gravity Course Vital Signs Vital signs: Vital Signs Temperature 36.4 C L 05/11/23 10:30 Pulse 75 05/11/23 10:30 Respiratory Rate 20 05/11/23 10:30 Blood Pressure 130/54 L 05/11/23 10:30 Pulse Oximetry 95 05/11/23 10:30 Temperature 36.4 C L 05/11/23 10:47 Temperature Source Skin 05/11/23 10:47 Pulse 75 05/11/23 10:47 Respiratory Rate 20 05/11/23 10:47 Respiratory Effort Normal, Non-Labored 05/11/23 10:46 Blood Pressure 130/54 L 05/11/23 10:47 Blood Pressure Position Sitting 05/11/23 10:47 Pulse Oximetry 95 05/11/23 10:47 Oxygen Delivery Method Room Air 05/11/23 10:47 Oxygen Flow Rate 0 05/11/23 10:47 Pain Level 0 05/11/23 10:47
--- NOTE | 2023-05-11 12:05 | NUR.NOTE ---
Nursing Note: this RN flushed pateint's Boston with Sterile Water. No resistance with flushing. 150ml drained from boston prior to procedure. MD parra
== END 2023-05-11 12:22 | disposition home or self-care (01) ==
PROVIDERS: Emergency Provider Student in an Organized Health Care Education/Training Program; PCP Nurse Practitioner Family
DX: R33.8 Other retention of urine (principal); T83.091A Other mechanical complication of indwelling urethral catheter, initial encounter
CPT/HCPCS: 99283

== ENCOUNTER 2023-05-13 10:05 | Emergency (ER) | payer MEDICARE, BC, SELFPAY ==
[2023-05-13 10:09] VITALS: BP 122/61; PULSE 77; RESP 16; TEMP 37.2; O2SAT 93
--- NOTE | 2023-05-13 10:28 | NUR.NOTE ---
Nursing Note: Whitten catheter removed without issue. Pt thankful for care and thanked this rn for a job well done.
--- NOTE | 2023-05-13 10:34 | W.ED.GENAD ---
Discharge Plan Disposition Patient Disposition: Home Condition: Improving Discharge Details Chief Complaint: Urinary Clinical Impression: Encounter for Whitten catheter removal, Urinary retention Primary Care Provider: Anika Robles ED Provider: Gustavo Jordan Home Meds and New Rx's Prescriptions: No Action spironolactone 25 mg tablet 25 mg PO DAILY dofetilide [Tikosyn] 250 mcg capsule 250 mcg PO Q12H atorvastatin 40 mg tablet 40 mg PO DAILY hydrochlorothiazide 25 mg tablet 25 mg PO DAILY Qty: 90 3RF Glucosamine-Chondroitin Complx 1 EACH capsule 2 cap PO DAILY acetaminophen 500 MG tablet 500 mg PO q4-6prn Patient Comments: 11/15/17 Not taking scheduled. zn kvng extract 250 MG capsule 250 mg PO DAILY losartan 100 mg tablet 100 mg PO DAILY Rx Instructions: 06/01/20 Increased from 50 to 100mg by [employer]. mk Eliquis 5 mg tablet 5 mg PO BID Discharge Instructions Instructions: Urinary Retention in Men (ED) Medical Decision Making 77-year-old male presents for Whitten catheter removal, was placed recently for urinary retention. Whitten catheter removed at bedside, patient voiding spontaneously. No signs of infection or obstruction. HPI General Date/Time Provider Initiated Documentation: 05/13/23 10:08. HPI Narrative: 77-year-old male recent urinary retention presents for Whitten catheter removal. Denies fevers chills nausea vomiting back pain or other systemic signs of illness. Related Data Home Medications Medication Instructions Recorded Confirmed acetaminophen 500 mg tablet 500 mg PO q4-6prn 08/13/12 05/13/23 [id number] C-Mn 2 cap PO DAILY 08/13/12 05/13/23 capsule (Glucosamine-Chondroitin Complex capsule) kvng (Zingiber officinalis) 250 250 mg PO DAILY 04/26/13 05/13/23 mg capsule (kvng extract) losartan 100 mg tablet 100 mg PO DAILY 06/02/20 05/13/23 apixaban 5 mg tablet (Eliquis) 5 mg PO BID 06/10/21 05/13/23 dofetilide 250 mcg capsule 250 mcg PO Q12H 08/02/22 05/13/23 (Tikosyn) spironolactone 25 mg tablet 25 mg PO DAILY 08/02/22 05/13/23 atorvastatin 40 mg tablet 40 mg PO DAILY 05/08/23 05/13/23 Allergies Allergy/AdvReac Type Severity Reaction Status Date / Time No Known Allergies Allergy Verified 05/13/23 10:18 General Stated Complaint: Urinary GREG: 4 Review of Systems Narrative: Review of Systems Constitutional: negative Eyes: negative ENT: negative Cardiovascular: negative Respiratory: negative Gastrointestinal: negative : Whitten catheter Musculoskeletal: negative Skin: negative Neurologic: negative Psych: negative PFSH All Active Problems (Updated 05/13/23 @ 10:50 by Gustavo Jordan MD) Urinary retention (Acute) Encounter for Whitten catheter removal (Acute) Whitten catheter problem (Acute) Acute urinary retention (Acute) Skin lesion of face (Acute) Chronic anticoagulation (Chronic) PAD (peripheral artery disease) (Chronic) Perimembranous ventricular septal defect (Chronic) [facility] Cardiology Atrial fibrillation (Chronic 06/01/21) [facility] Cardiology; s/p cardioversion 07/20/2021 with recurrence; dofetilide started 08/2022 Ascending aortic aneurysm (Chronic) [facility] Cardiology IFG (impaired fasting glucose) (Chronic) Osteoarth NOS-l/leg (Chronic 08/10/12) Neck pain (Chronic 12/28/12) Hyperlipidemia (Chronic 02/10/12) Baseline LDL 110; high intensity statin therapy (increased from moderate by Cardiology 05/2020) Essential hypertension (Chronic 10/23/12) 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 Carotid artery stenosis (Chronic 08/10/12) S/p L CEA 11/18/15 [facility] BPH without urinary obstruction (Chronic) Medical History Amaurosis fugax, left eye (~10/2015) TIA Lyme disease (~02/2021) Rotator cuff arthropathy of right shoulder Trigger ring finger of left hand Hydrocele of testis (01/30/13) left GERD (gastroesophageal reflux disease) Surgical History Status post carotid endarterectomy (~11/18/15) Left; Tanvir Reynoso [facility] Status post total bilateral knee replacement (08/10/12) 2007 (L), 2011 (R) Repair of inguinal hernia (05/06/15) Right; Dr Ma Family History Mother No problems noted. Father No problems noted. Brother No problems noted. Brother No problems noted. Brother Essential hypertension Brother No problems noted. Sister No problems noted. Sister No problems noted. Sister No problems noted. Social History Smoking/Tobacco Use Status: Never Smoking risk assessment performed?: Yes Alcohol Intake: former Drug use: Never Substance use type: does not use Adopted: No Caregiver/Support person: No Foster care: No Household members: spouse Housing: house Number of Children: 4 Communication Needs: Hard of Hearing Do you need help understanding health information?: Often current occupation: Retired Pets and animals: No Do you think of yourself as: straight/heterosexual Current gender identity: male What is your relationship status?: How often do you talk on the phone with friends or family?: decline to answer How often do you get together with friends or relatives?: twice per week Do you belong to any clubs or organized social groups?: no Panel score (0-1 are the most socially isolated patients): 1 What type of physical activity do you participate in: regular exercise and other Details: Stays active Duration: > 90 minutes/day Frequency: daily Special katiuska needs: No Seatbelt use: always Helmet use: No Drive intox or ride w/intox bus driver/monitor: No Water heater temp set <120 deg: Yes Working smoke detector in home: Yes Fire extinguisher in home: Yes Carbon monox detector in home: Yes Firearms in home: No Do you feel safe at home: Yes Do you feel safe in your relationship?: Yes Exam Narrative Exam Narrative: Physical Examination General: alert, awake, cooperative, resting comfortably, no acute distress HEENT: normocephalic, atraumatic; PERRL, EOM intact, conjunctiva normal; no nasal discharge; moist mucous membranes, oral and pharyngeal mucosa normal, tolerating secretions : Whitten catheter in place Skin: no lesions, rashes or trauma appreciated Neuro: AAOx3, normal speech, moving all extremities Psych: Appropriate mood and affect Course Vital Signs Vital signs: Vital Signs Temperature 37.2 C 05/13/23 10:09 Pulse 77 05/13/23 10:09 Respiratory Rate 16 05/13/23 10:09 Blood Pressure 122/61 05/13/23 10:09 Pulse Oximetry 93 05/13/23 10:09 Temperature 37.2 C 05/13/23 10:09 Temperature Source Skin 05/13/23 10:09 Pulse 77 05/13/23 10:09 Respiratory Rate 16 05/13/23 10:09 Respiratory Effort Normal 05/13/23 10:26 Blood Pressure 122/61 05/13/23 10:09 Blood Pressure Position Sitting 05/13/23 10:09 Pulse Oximetry 93 05/13/23 10:09 Oxygen Delivery Method Room Air 05/13/23 10:09 Oxygen Flow Rate 0 05/13/23 10:09 Pain Level 0 05/13/23 10:09
== END 2023-05-13 11:13 | disposition home or self-care (01) ==
PROVIDERS: Emergency Provider Emergency Medicine; PCP Nurse Practitioner Family
DX: R33.9 Retention of urine, unspecified (principal); Z46.6 Encounter for fitting and adjustment of urinary device
CPT/HCPCS: 99282; 99283

== ENCOUNTER 2023-05-15 15:15 | Outpatient (REF) | payer MEDICARE, BC, SELFPAY | END 2023-05-15 15:16 | disposition home or self-care (01) | LOC: LBN 15:15 | PROVIDERS: PCP Nurse Practitioner Family; Visit Provider Family Medicine | DX: R31.9 Hematuria, unspecified (principal) | CPT/HCPCS: 87077; 87086; 87186 ==

== ENCOUNTER 2023-05-19 11:35 | Outpatient (CLI) | payer MEDICARE, BC, SELFPAY ==
--- NOTE | 2023-05-19 11:30 | RT.EKG_ITS ---
APPROVED REPORT Exam: Resting ECG Reason for Exam: Rule out prolonged QT Patient Location: O HR:65 bpm ECG Measurements Heart Rate 65 AXIS OR 195 P 47 QRSd 90 QRS 43 QT 467 T 63 QTc 486 Conclusion Sinus rhythm...normal P axis, V-rate 50- 99 Consider left ventricular hypertrophy...(S V1/V2+R V5/V6) >3.50mV Borderline prolonged QT interval...QTc >475mS I have reviewed and interpreted ECG and agree with software generated interpretation.
== END 2023-05-19 11:36 | disposition home or self-care (01) ==
LOC: DI.KIM 11:36
PROVIDERS: PCP Nurse Practitioner Family; Visit Provider Family Medicine
DX: I48.91 Unspecified atrial fibrillation (principal)
CPT/HCPCS: 93010

== ENCOUNTER 2024-10-11 13:23 | Outpatient (CLI) | payer MEDICARE, BC, SELFPAY ==
[2024-10-11 13:31] LABS: HCT 40.1 % (40.0-50.0); HGB 13.8 g/dL (13.5-17.5); MCH 31.8 pg (27.0-33.0); MCHC 34.4 % (32.0-36.0); MCV 92 fL (80-95); MPV 8.9 fL (8.0-11.0); Platelet Count 194 10^3/uL (130-400); RBC 4.34 10^6/uL (4.36-5.78); RDW 12.6 % (11.8-14.1); RDW-SD 42.5 fL; WBC 5.87 10^3/uL (4.4-10.8)
[2024-10-11 14:00] LABS: Hemoglobin A1C 5.6 % (<5.7)
[2024-10-11 14:26] LABS: ALT 20 U/L (16-63); AST 21 U/L (15-37); Albumin 3.6 g/dL (3.4-5.0); Alkaline Phosphatase 68 U/L (46-116); Anion Gap 7.6 mmol/L (3-11); BUN 21 mg/dL (7-18); Bilirubin, Total 0.8 mg/dL (0.2-1.0); CO2 26.4 mmol/L (21.0-32.0); CREATININE 0.9 mg/dL (0.70-1.30); Calcium 8.9 mg/dL (8.5-10.1); Calculated LDL 39 mg/dL (<100); Chloride 105 mmol/L (98-107); Cholesterol 119 mg/dL (<200); Glucose 116 mg/dL (74-106); HDL Cholesterol 55 mg/dL (>or=40); Potassium 4.5 mmol/L (3.5-5.1); Sodium 139 mmol/L (136-145); Total Protein 6.8 g/dL (6.4-8.2); Triglyceride 125 mg/dL (<150)
== END 2024-10-11 13:24 | disposition home or self-care (01) ==
LOC: LBO 13:24
PROVIDERS: PCP Family Medicine; Visit Provider Nurse Practitioner Family
DX: I10 Essential (primary) hypertension (principal); Z79.01 Long term (current) use of anticoagulants; E78.5 Hyperlipidemia, unspecified; R73.01 Impaired fasting glucose
CPT/HCPCS: 36415; 80053; 80061; 85027; 83036

== ENCOUNTER 2025-03-14 13:47 | Emergency (ER) | payer MEDICARE, BC, SELFPAY ==
[2025-03-14 13:51] VITALS: BP 126/73; PULSE 71; RESP 18; TEMP 36.9; O2SAT 95
[2025-03-14 13:55] VITALS: BP 126/73; PULSE 71; RESP 18; TEMP 36.9; O2SAT 95
--- NOTE | 2025-03-14 14:36 | ED.GENADUL_ITS ---
Discharge Plan Disposition Patient Disposition: Home Condition: Improving Discharge Details Clinical Impression: Complication of Whitten catheter Primary Care Provider: Davi Vital ED Provider: Ha [place] Home Meds and New Rx's Prescriptions: Continued dofetilide [Tikosyn] 250 mcg capsule 250 mcg PO Q12H atorvastatin 40 mg tablet 40 mg PO DAILY spironolactone 25 mg tablet 25 mg PO DAILY hydrochlorothiazide 25 mg tablet 25 mg PO DAILY Qty: 90 3RF Glucosamine-Chondroitin Complx 1 EACH capsule 2 cap PO DAILY acetaminophen 500 MG tablet 500 mg PO q4-6prn Patient Comments: 11/15/17 Not taking scheduled. zn kvng extract 250 MG capsule 250 mg PO DAILY losartan 100 mg tablet 100 mg PO DAILY Rx Instructions: 06/01/20 Increased from 50 to 100mg by Labor Custodian. mk Eliquis 5 mg tablet 5 mg PO BID ciprofloxacin HCl 750 mg tablet 750 mg PO Q12H finasteride 5 mg tablet 5 mg PO DAILY folic acid 1 mg tablet 1 mg PO DAILY solifenacin 5 mg tablet 5 mg PO DAILY tamsulosin 0.4 mg capsule 0.4 mg PO DAILY Discharge Instructions Additional Instructions: Whitten catheter appears to be functioning well after flushing and changing the leg bag. Please continue the recommendations of taking Cipro and holding your apixaban given to you by the [facility]. I have given you the name and number of our local urologist, please contact their office later today to discuss your need for outpatient follow-up. Please also contact your PCP to make them aware of your recent hospitalization and need for outpatient follow- up. Watch for new or worsening symptoms and return immediately to the ER. Referrals: Hammad Dangelo MD [ [facility] STAFF PHYSICIAN, Urology] [facility] General Mode of arrival: ambulatory . Date/Time Provider Initiated Documentation: 03/14/25 13:58 . Limitations to Documentation: no limitations . Information obtained by: patient and family . History of Present Illness 79 year old M presents to the emergency department with the chief complaint of Blocked Whitten catheter, described as mild, with intensity rated at 1. Quality is described as other (Pressure), and is localized to the genitals. Patient reports no radiation. Patient started experiencing this hour(s) (1) and it has been other (Improving). No relieving factors improve symptom(s), No exacerbating factors reported . Patient notes no other symptoms.. Patient did receive the following treatments prior to arrival, none Related Data Home Medications ?Medication ?Instructions ?Recorded ?Confirmed acetaminophen 500 mg tablet 500 mg PO q4-6prn 08/13/12 03/14/25 [id number] C-Mn 2 cap PO DAILY 08/13/12 03/14/25 capsule (Glucosamine-Chondroitin Complex capsule) kvng (Zingiber officinalis) 250 250 mg PO DAILY 04/0603/14/25 mg capsule (kvng extract) losartan 100 mg tablet 100 mg PO DAILY 06/02/2003/29 apixaban 5 mg tablet (Eliquis) 5 mg PO BID 06/10/21 dofetilide 250 mcg capsule 250 mcg PO Q12H 08/02/22 (Tikosyn) atorvastatin 40 mg tablet 40 mg PO DAILY 05/08/2303/05 spironolactone 25 mg tablet 25 mg PO DAILY 10/02/24 ciprofloxacin HCl 750 mg tablet 750 mg PO Q12H 5 03/14/25 finasteride 5 mg tablet 5 mg PO DAILY 03/13/2503/14 folic acid 1 mg tablet 1 mg PO DAILY 03/13/2503/14 solifenacin 5 mg tablet 5 mg PO DAILY 03/13/2503/14 tamsulosin 0.4 mg capsule 0.4 mg PO DAILY 03/13/2503/29 Allergies Allergy/AdvReac Type Severity Reaction Status Date / Time No Known Allergies Allergy Verified 03/14/25 13:55 General Stated Complaint: Urinary GREG: 4 Review of Systems Constitutional Constitutional: Denies fever(s) Cardiovascular Cardiovascular: Denies chest pain and Denies dyspnea Respiratory Respiratory: Denies cough and Denies dyspnea Gastrointestinal Gastrointestinal: Denies abdominal pain, Denies nausea and Denies vomiting Genitourinary Genitourinary: Denies genital pain, Denies urinary frequency and Reports urinary hesitancy Musculoskeletal Musculoskeletal: Denies back pain Integumentary/Breasts Skin/Breast: Denies rash Exam Const General: cooperative, healthy appearing, comfortable and no acute distress Orientation: alert and awake [facility] Head: normal to inspection, normocephalic and atraumatic Mouth: moist mucous membranes Eyes Conjunctivae: conjunctivae normal Neck Neck: normal visual inspection, trachea midline and supple Resp Effort & Inspection: normal respiratory effort and able to speak in complete sentences Cardio Rate: regular rate Rhythm: regular rhythm GI Palpation: soft, not firm, no guarding and nontender Other: Whitten catheter in place, otherwise unremarkable Back/Spine/Pelvis Back: no CVA tenderness and No back tenderness Skin General skin exam: no rashes or lesions noted Neuro General: patient alert, patient awake, moves all extremities and no focal motor deficits Sensory Exam: no sensory deficits noted Psych Appearance: grossly normal Mental Status: mental status grossly normal Course Vital Signs Vital signs: Vital Signs Temperature 36.9 C 03/14/25 13:51 Pulse 71 03/14/25 13:51 Respiratory Rate 18 03/14/25 13:51 Blood Pressure 126/73 03/14/25 13:51 Pulse Oximetry 95 03/14/25 13:51 Temperature 36.9 C 03/14/25 13:55 Pulse 71 03/14/25 13:55 Respiratory Rate 18 03/14/25 13:55 Blood Pressure 126/73 03/14/25 13:55 Pulse Oximetry 95 03/14/25 13:55 Oxygen Delivery Method Room Air 03/14/25 13:55 Oxygen Flow Rate 0 03/14/25 13:55 Pain Level 0 03/14/25 13:55 Medical Decision Making 79-year-old male with CHF, PAD, A-fib, hypertension, carotid artery stenosis, takes apixaban daily, BPH without urinary obstruction presents for a dysfunctional Whitten catheter. The patient was admitted earlier in the week to [facility] for hematuria and UTI. He describes a urinary procedure to stop the bleeding. Discharged yesterday. Whitten catheter was placed and has been functioning well up until 1 hour ago. He was told to hold his apixaban until he follows up with his PCP within the week. He was also told to follow-up with urology but does not have a referral. He is currently taking oral Cipro. He denies any abdominal pain or fever. Since he has been here in the ER the Whitten catheter has already started to drain and he is now asymptomatic. He is concerned that the leg bag he has does not fit properly and is bunching causing an obstruction. Clinically he appears well, nontoxic. There is roughly 50 cc of dark yellow urine in the leg bag, no obvious hematuria. He is hemodynamically stable. Leg bag was changed and Whitten catheter was flushed, a couple small clots were noted. Bladder scan completed and had about 75 cc. Patient was then ambulatory and about 75 cc of nonbloody urine drained in the leg bag. Patient remains asymptomatic. Whitten catheter appears to be normal functioning. Will provide referral to Dr. Dangelo. Also recommend that they contact their PCP regarding his recent hospitalization and need for proper outpatient follow-up. Encouraged to watch for new or worsening symptoms and return immediately to the ER. Standard discharge and return precautions were provided. Patient understands, is agreeable to this plan, and has no additional questions or concerns upon discharge. This documentation was generated using [employer] system, please disregard any oddities of phrase or misspellings. Medical Records Medical records reviewed: Yes I reviewed the patient's medical records. Quality:SDOH Health Related Social Needs: Health related social needs details None mentioned PFSH All Active Problems (Updated 03/14/25 @ 14:44 by ARMEN Casey) Complication of Whitten catheter (Acute) Acute on chronic diastolic (congestive) heart failure (Acute) DX on 03/08/2025 at [facility] Severe sepsis (Acute) 03/08/2025 DX at [facility] Mixed conductive and sensorineural hearing loss of left ear with restricted hearing of right ear (Acute) 01/24/25 [facility] Audiology note Impairment of auditory discrimination of left ear (Acute) Asymmetrical sensorineural hearing loss (Acute) Skin lesion of face (Acute) Chronic anticoagulation (Chronic) PAD (peripheral artery disease) (Chronic) Perimembranous ventricular septal defect (Chronic) [facility] Cardiology Atrial fibrillation (Chronic 06/01/21) [facility] Cardiology; s/p cardioversion 07/20/2021 with recurrence; dofetilide started 08/2022 Ascending aortic aneurysm (Chronic) [facility] Cardiology IFG (impaired fasting glucose) (Chronic) Osteoarth NOS-l/leg (Chronic 08/10/12) Neck pain (Chronic 12/28/12) Hyperlipidemia (Chronic 02/10/12) Baseline LDL 110; high intensity statin therapy (increased from moderate by Cardiology 05/2020) Essential hypertension (Chronic 10/23/12) 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 Father No problems noted. Brother No problems noted. Brother No problems noted. Brother Essential hypertension Brother No problems noted. Sister No problems noted. Sister No problems noted. Sister No problems noted. Social History Smoking/Tobacco Use Status: Never Smoking risk assessment performed?: Yes Alcohol Intake: never Drug use: Never Substance use type: does not use Adopted: No Caregiver/Support person: No Foster care: No Household members: spouse Housing: house Number of Children: 4 number of grandchildren: 14 Communication Needs: Hard of Hearing Education Level: high school Do you need help understanding health information?: Rarely current occupation: Retired Pets and animals: No Sexually active: No Do you think of yourself as: straight/heterosexual Current gender identity: male What is your relationship status?: How often do you talk on the phone with friends or family?: three or more times per week How often do you get together with friends or relatives?: twice per week Do you belong to any clubs or organized social groups?: no Panel score (0-1 are the most socially isolated patients): 2 What type of physical activity do you participate in: none Soniya/Episcopal: Cheondoism Special soniya needs: No Seatbelt use: always Helmet use: No (N/A) Drive intox or ride w/intox racing driver: No Water heater temp set <120 deg: Yes Working smoke detector in home: Yes Fire extinguisher in home: Yes Carbon monox detector in home: Yes Firearms in home: No Do you feel safe at home: Yes Do you feel safe in your relationship?: Yes
== END 2025-03-14 15:19 | disposition home or self-care (01) ==
PROVIDERS: Emergency Provider Physician Assistant; PCP Family Medicine
DX: T83.091A Other mechanical complication of indwelling urethral catheter, initial encounter (principal)
CPT/HCPCS: 99283 ×2

== ENCOUNTER 2025-03-18 11:37 | Outpatient (CLI) | payer MEDICARE, BC, SELFPAY ==
--- NOTE | 2025-03-18 11:30 | DI.US_ITS ---
Exam(s) US LOWER EXTREMITY VENOUS RT EXAM: US LOWER EXTREMITY VENOUS RT CLINICAL HISTORY: right lower leg swelling, r/o dvt M79.89 ST DISORDER. TECHNIQUE: Lower extremity venous ultrasound performed using grayscale, color- flow, and spectral Doppler analysis. COMPARISON: No exams were available for comparison FINDINGS: The common femoral, femoral and popliteal veins demonstrate normal compressibility, augmentation, and color Doppler. The posterior tibial and peroneal veins are patent. No saphenous vein thrombosis or other superficial venous thrombosis is seen. No hematoma or Banda's cyst is seen. IMPRESSION: Negative lower extremity ultrasound. No evidence of DVT. DATA REPOSITORY:
== END 2025-03-18 11:57 ==
LOC: DI 11:38
PROVIDERS: PCP Family Medicine; Visit Provider Physician Assistant
DX: M79.89 Other specified soft tissue disorders (principal)
CPT/HCPCS: 93971

== ENCOUNTER 2025-03-21 16:08 | Outpatient (CLI) | payer MEDICARE, BC, SELFPAY ==
[2025-03-21 16:11] LABS: HCT 37.2 % (40.0-50.0); HGB 13.0 g/dL (13.5-17.5); MCH 32.0 pg (27.0-33.0); MCHC 34.9 % (32.0-36.0); MCV 92 fL (80-95); MPV 8.4 fL (8.0-11.0); Platelet Count 343 10^3/uL (130-400); RBC 4.06 10^6/uL (4.36-5.78); RDW 12.0 % (11.8-14.1); RDW-SD 40.2 fL; WBC 7.70 10^3/uL (4.4-10.8)
== END 2025-03-21 16:09 | disposition home or self-care (01) ==
LOC: LBO 16:09
PROVIDERS: PCP Family Medicine; Visit Provider Nurse Practitioner Family
DX: I48.91 Unspecified atrial fibrillation (principal)
CPT/HCPCS: 36415; 85027